=== PATIENT | male | born 1960 | race American Indian/Alaskan Native ===

== ENCOUNTER 2017-08-22 15:24 | Inpatient (IN) | payer MEDICARE ==
[2017-08-22 16:51] LABS: Basophils # (Auto) 0.1 K/mm3 (0.0-0.1); Eosinophils % (Auto) 14.2 % (0.0-4.3); Hematocrit 36.6 % (35.5-45.6); Hemoglobin 11.6 gm/dl (11.8-15.2); Lymphocytes # (Auto) 0.5 K/mm3 (1.2-5.4); Lymphocytes % (Auto) 7.1 % (13.4-35.0); Mean Corpuscular HGB Conc 32 % (32-34); Mean Corpuscular Hemoglobin 31 pg (28-32); Mean Corpuscular Volume 96 fl (84-94); Monocytes # (Auto) 0.2 K/mm3 (0.0-0.8); Monocytes % (Auto) 2.8 % (0.0-7.3); Red Cell Distribution Width 16.8 % (13.2-15.2)
[2017-08-22 16:54] LABS: Platelet Count 116 K/mm3 (140-440)
[2017-08-22 16:59] LABS: INR 1.7 (0.87-1.13)
[2017-08-22 17:08] LABS: Partial Thromboplastin Time 68.2 Sec. (24.2-36.6)
[2017-08-22 17:32] LABS: Albumin 4.2 g/dL (3.9-5); Calcium 9.3 mg/dL (8.4-10.2); Magnesium 2.3 mg/dL (1.7-2.3)
[2017-08-22] MEDS ORDERED: BENADRYL IV ONE (19:10)
[2017-08-22] MEDS ORDERED: APRESOLINE IV ONE (19:11)
--- NOTE | 2017-08-22 19:15 | Emergency Department Report ---
ED General Adult HPI - General Chief complaint: Medical Clearance Stated complaint: POSSIBLE SHINGLES, VOMMITTING Time Seen by Provider: 08/22/17 19:04 Source: patient, family Mode of arrival: Wheelchair Limitations: No Limitations - History of Present Illness Initial comments: Patient is 57 years old male history of end-stage renal disease on hemodialysis , hypertension and diabetes, legally blind. Patient presented today with generalized itching for more than a month. He stated that he missed his dialysis yesterday came was a blood pressure of 226/114. Patient denied any headache complain of mild shortness of breath. - Related Data Allergies Allergy/AdvReac Type Severity Reaction Status Date / Time latex Allergy Hives Verified 08/22/17 16:18 ED Review of Systems ROS: Stated complaint: POSSIBLE SHINGLES, VOMMITTING Other details as noted in HPI Comment: All other systems reviewed and negative Constitutional: denies: chills, fever Respiratory: shortness of breath. denies: cough Cardiovascular: orthopnea. denies: chest pain, palpitations, dyspnea on exertion Gastrointestinal: denies: abdominal pain, nausea, vomiting, diarrhea, constipation, hematemesis Neurological: denies: headache, numbness, paresthesias ED Past Medical Hx - Past Medical History Hx Hypertension: Yes Hx Diabetes: Yes Hx Renal Disease: Yes Additional medical history: BLIOND - Surgical History Additional Surgical History: SHUNT IN RIGHT ARM - Social History Smoking Status: Never Smoker Substance Use Type: Alcohol ED Physical Exam - General Limitations: No Limitations General appearance: alert, in no apparent distress - Head Head exam: Present: atraumatic, normocephalic, normal inspection - Eye Eye exam: Present: normal appearance - Neck Neck exam: Present: normal inspection, full ROM. Absent: tenderness - Respiratory Respiratory exam: Present: decreased breath sounds. Absent: normal lung sounds bilaterally, respiratory distress, wheezes, rales - Cardiovascular Cardiovascular Exam: Present: regular rate, normal rhythm, normal heart sounds - GI/Abdominal GI/Abdominal exam: Present: soft, normal bowel sounds. Absent: distended, tenderness, guarding, rebound, rigid, organomegaly, mass, bruit, pulsatile mass , hernia - Extremities Exam Extremities exam: Present: normal inspection, full ROM, normal capillary refill - Back Exam Back exam: Present: normal inspection, full ROM. Absent: tenderness, CVA tenderness (R), CVA tenderness (L) - Neurological Exam Neurological exam: Present: alert, oriented X3, CN II-XII intact, normal gait - Psychiatric Psychiatric exam: Present: normal affect - Skin Skin exam: Present: warm, intact, normal color. Absent: cyanosis, diaphoretic, erythema ED Course Vital Signs 08/22/17 08/22/17 08/22/17 16:18 20:20 20:30 Temperature 98.7 F Pulse Rate 85 89 83 Respiratory 24 19 Rate Blood Pressure 226/114 233/119 O2 Sat by Pulse 93 100 Oximetry 08/22/17 20:38 Temperature 98.3 F Pulse Rate Respiratory Rate Blood Pressure O2 Sat by Pulse Oximetry ED Medical Decision Making - Lab Data Result diagrams: 08/22/17 16:37 08/22/17 16:37 - Radiology Data Radiology results: report reviewed Referring Physician: ZEFERINO PADGETT Patient Name: MAURI MARROQUIN Date of : 1960 Sex: Male Report Date: 2017-08-22 Report Status: Finalized Findings [address] [address] XRay Report Signed Patient: MAURI MARROQUIN MR#: [id number] : 1960 Acct:[id number] Age/Sex: 57 / M ADM Date: 08/22/17 Loc: ED Attending Dr: Ordering Physician: ZEFERINO PADGETT Date of Service: 08/22/17 Procedure(s): XR chest 1V ap Accession Number(s): [id number] cc: ZEFERINO PADGETT Fluoro Time In Minutes: FINAL REPORT EXAM: XR CHEST 1V AP HISTORY: volume overload TECHNIQUE: AP portable view of the chest. PRIORS: None. FINDINGS: The cardiac silhouette is moderately enlarged. The lungs are clear. The bones and soft tissues are unremarkable. IMPRESSION: Moderate cardiomegaly. Otherwise, no acute findings. Transcribed By: CAROLYN Dictated By: IRIS PRIETO MD Electronically Authenticated By: IRIS PRIETO MD Signed Date/Time: 08/22/171529 DD/ 29 TD/TT: 08/22/171529 - Medical Decision Making Discussed with Dr. Lydia, I presented the patient to him, he is at bedside admitting the patient.Dr Freeman stated that he will talk to Dr Palencia. Critical care attestation.: If time is entered above; I have spent that time in minutes in the direct care of this critically ill patient, excluding procedure time. ED Disposition Clinical Impression: Volume overload, Itching, End stage renal disease on dialysis Disposition: OP ADMIT IP TO THIS HOSP Is pt being admited?: Yes Condition: Stable
--- NOTE | 2017-08-22 19:34 | XRay Report ---
FINAL REPORT EXAM: XR CHEST 1V AP HISTORY: volume overload TECHNIQUE: AP portable view of the chest. PRIORS: None. FINDINGS: The cardiac silhouette is moderately enlarged. The lungs are clear. The bones and soft tissues are unremarkable. IMPRESSION: Moderate cardiomegaly. Otherwise, no acute findings.
[2017-08-22] MEDS ORDERED: AMBIEN PO PRN (21:14)
[2017-08-22] MEDS ORDERED: MILK OF MAGNESIA PO PRN (21:14)
[2017-08-22] MEDS ORDERED: DULCOLAX PR PRN (21:14)
[2017-08-22] MEDS ORDERED: TYLENOL PO PRN (21:14)
[2017-08-22] MEDS ORDERED: ZOFRAN IV PRN (21:14)
--- NOTE | 2017-08-22 21:14 | History and Physical Report ---
History of Present Illness Date of examination: 08/22/17 Date of admission: 08/22/17 19:50 Chief complaint: Cc Sob sec to missed HD History of present illness: History of Present Illness Patient is 57 years old male history of end-stage renal disease on hemodialysis , hypertension and diabetes, legally blind. Patient presented today with generalized itching for more than a month. He stated that he missed his dialysis yesterday Patient denied any headache. Complaints of mild shortness of breath.Also High BP.Orthopnea present. Goes to [facility] Past Medical History Hx Hypertension: Yes Hx Diabetes: Yes Hx Renal Disease: Yes Additional medical history: BLIND Surgical History Additional Surgical History: SHUNT IN RIGHT ARM Social History Smoking Status: Never Smoker Substance Use Type: Alcohol Fam Hx htn l Medications and Allergies Allergies Allergy/AdvReac Type Severity Reaction Status Date / Time latex Allergy Hives Verified 08/22/17 16:18 Home Medications Medication Instructions Recorded Confirmed Last Taken Type B,C/Ferrous Fum/FA/D3/Zinc Ox 1 each PO DAILY 08/22/17 08/22/17 Unknown History [Prorenal Multivitamin Tablet] Calcium Acetate 667 mg PO TID 08/22/17 08/22/17 Unknown History Calcium Carbonate [Antacid Extra 300 mg PO DAILY 08/22/17 08/22/17 Unknown History Strength] Cholecalciferol (Vitamin D3) 50,000 unit PO QWEEK 08/22/17 08/22/17 Unknown History [Vitamin D3] Ciprofloxacin HCl [Ciprofloxacin 500 mg PO BID 08/22/17 08/22/17 Unknown History TAB] NIFEdipine [Nifedipine ER] 60 mg PO DAILY 08/22/17 08/22/17 Unknown History Review of Systems All systems: negative Constitutional: no weight loss, no weight gain, no fever, no chills Ears, nose, mouth and throat: no hoarseness, no sore throat, no swelling in mouth, no swelling in throat Cardiovascular: orthopnea, shortness of breath, dyspnea on exertion, no chest pain, no palpitations, no rapid/irregular heart beat, no edema, no syncope, no lightheadedness Respiratory: no cough, no cough with sputum, no excessive sputum, no hemoptysis , no shortness of breath, no dyspnea on exertion Gastrointestinal: no abdominal pain, no nausea, no vomiting, no diarrhea, no constipation, no change in bowel habits, no hematemesis Genitourinary Male: no hematuria, no flank pain, no discharge, no urinary frequency, no urinary hesitancy, no nocturia Rectal: no pain Musculoskeletal: no neck stiffness, no neck pain, no shooting arm pain, no arm numbness/tingling, no low back pain, no shooting leg pain, no leg numbness/ tingling, no redness of joints Integumentary: no rash, no pruritis, no redness, no sores Neurological: no head injury, no transient paralysis, no paralysis, no weakness Psychiatric: no anxiety, no change in sleep habits, no sleep disturbances Endocrine: no cold intolerance, no heat intolerance Hematologic/Lymphatic: no easy bruising, no easy bleeding Allergic/Immunologic: no urticaria, no allergic rhinitis, no wheezing Exam - Constitutional Vitals: Temp Pulse Resp BP Pulse Ox 98.3 F 83 19 233/119 100 08/22/17 20:38 08/22/17 20:30 08/22/17 20:30 08/22/17 20:30 08/22/17 20:30 General appearance: Present: no acute distress, well-nourished - EENT Eyes: Present: PERRL ENT: hearing intact, clear oral mucosa - Neck Neck: Present: supple, normal ROM - Respiratory Respiratory effort: normal Respiratory: bilateral: CTA - Cardiovascular Heart rate: 80 Rhythm: regular Heart Sounds: Present: S1 & S2. Absent: rub, click - Extremities Extremities: no ischemia, pulses intact, pulses symmetrical, No edema Peripheral Pulses: within normal limits - Abdominal General gastrointestinal: Present: soft, non-tender, non-distended, normal bowel sounds Male genitourinary: Present: normal - Integumentary Integumentary: Present: clear, warm, dry - Musculoskeletal Musculoskeletal: gait normal, strength equal bilaterally - Psychiatric Psychiatric: appropriate mood/affect, intact judgment & insight - Neurologic Neurologic: CNII-XII intact, moves all extremities - Allied Health Allied health notes reviewed: nursing, case management Results - Labs CBC & Chem 7: 08/22/17 16:37 08/22/17 16:37 Labs: Laboratory Last Values WBC 6.9 K/mm3 (4.5-11.0) 08/22/17 16:37 RBC 3.80 M/mm3 (3.65-5.03) 08/22/17 16:37 Hgb 11.6 gm/dl (11.8-15.2) L 08/22/17 16:37 Hct 36.6 % (35.5-45.6) 08/22/17 16:37 MCV 96 fl (84-94) H 08/22/17 16:37 MCH 31 pg (28-32) 08/22/17 16:37 MCHC 32 % (32-34) 08/22/17 16:37 RDW 16.8 % (13.2-15.2) H 08/22/17 16:37 Plt Count 116 K/mm3 (140-440) L 08/22/17 16:37 Lymph % (Auto) 7.1 % (13.4-35.0) L 08/22/17 16:37 [place] % (Auto) 2.8 % (0.0-7.3) 08/22/17 16:37 Eos % (Auto) 14.2 % (0.0-4.3) H 08/22/17 16:37 Baso % (Auto) 1.0 % (0.0-1.8) 08/22/17 16:37 Lymph # 0.5 K/mm3 (1.2-5.4) L 08/22/17 16:37 [place] # 0.2 K/mm3 (0.0-0.8) 08/22/17 16:37 Eos # 1.0 K/mm3 (0.0-0.4) H 08/22/17 16:37 Baso # 0.1 K/mm3 (0.0-0.1) 08/22/17 16:37 Seg Neutrophils % 74.9 % (40.0-70.0) H 08/22/17 16:37 Seg Neutrophils # 5.1 K/mm3 (1.8-7.7) 08/22/17 16:37 PT 20.9 Sec. (12.2-14.9) H 08/22/17 16:37 INR 1.70 (0.87-1.13) H 08/22/17 16:37 APTT 68.2 Sec. (24.2-36.6) H* 08/22/17 16:37 Sodium 138 mmol/L (137-145) 08/22/17 16:37 Potassium 4.6 mmol/L (3.6-5.0) 08/22/17 16:37 Chloride 89.4 mmol/L (98-107) L 08/22/17 16:37 Carbon Dioxide 24 mmol/L (22-30) 08/22/17 16:37 Anion Gap 29 mmol/L 08/22/17 16:37 BUN 66 mg/dL (9-20) H 08/22/17 16:37 Creatinine 10.8 mg/dL (0.8-1.5) H 08/22/17 16:37 Estimated GFR 6 ml/min 08/22/17 16:37 BUN/Creatinine Ratio 6 % 08/22/17 16:37 Glucose 147 mg/dL (75-100) H 08/22/17 16:37 Calcium 9.3 mg/dL (8.4-10.2) 08/22/17 16:37 Magnesium 2.30 mg/dL (1.7-2.3) 08/22/17 16:37 Total Bilirubin 0.80 mg/dL (0.1-1.2) 08/22/17 16:37 AST 18 units/L (5-40) 08/22/17 16:37 ALT 21 units/L (7-56) 08/22/17 16:37 Alkaline Phosphatase 119 units/L (35-129) 08/22/17 16:37 Total Protein 7.2 g/dL (6.3-8.2) 08/22/17 16:37 Albumin 4.2 g/dL (3.9-5) 08/22/17 16:37 Albumin/Globulin Ratio 1.4 % 08/22/17 16:37 - Imaging and Cardiology EKG: report reviewed Chest x-ray: report reviewed (Cardiomegaly,NAF) Assessment and Plan Advance Directives: Yes (Full code) VTE prophylaxis?: Chemical Plan of care discussed with patient/family: Yes - Patient Problems (1) Hypertensive emergency Current Visit: Yes Status: Acute Plan to address problem: Patient initiated on Losartan and Coreg Cont Nifedipine (2) Volume overload Current Visit: Yes Status: Acute Qualifiers: Hypervolemia type: unspecified Qualified Code(s): E87.70 - Fluid overload, unspecified Plan to address problem: Needs HD Nephrology consulted (3) End stage renal disease on dialysis Current Visit: Yes Status: Chronic Plan to address problem: cont HD (4) Pruritus Current Visit: Yes Status: Chronic Plan to address problem: Sec to uremia Hydroxyzine (5) DVT prophylaxis Current Visit: Yes Status: Acute Plan to address problem: On Heparin
[2017-08-22] MEDS ORDERED: ATARAX PO PRN (23:50)
[2017-08-22] MEDS: HEPARIN SUB-Q SCH (23:55)
[2017-08-23] MEDS: APRESOLINE IV PRN ×2 (02:59→13:22)
[2017-08-23] MEDS ORDERED: APRESOLINE ONE (03:02)
[2017-08-23] MEDS ORDERED: BENADRYL ONE (04:01)
[2017-08-23] MEDS ORDERED: BENADRYL IV ONE (04:04)
[2017-08-23 08:40] LABS: Hematocrit 33.8 % (35.5-45.6); Hemoglobin 10.6 gm/dl (11.8-15.2); Mean Corpuscular HGB Conc 31 % (32-34); Mean Corpuscular Hemoglobin 29 pg (28-32); Mean Corpuscular Volume 93 fl (84-94); Platelet Count 119 K/mm3 (140-440); Red Blood Count 3.62 M/mm3 (3.65-5.03); Red Cell Distribution Width 16.9 % (13.2-15.2)
--- NOTE | 2017-08-23 09:18 | Progress Note ---
Assessment and Plan Assessment and plan: Accelerated hypertension. Continue losartan, Procardia and Coreg. Increase Procardia. Volume overload. Patient with missed hemodialysis. Nephrology consultation pending. Continue scheduled hemodialysis. ESRD. Hemodialysis per nephrology. Pruritis. Etiology secondary to uremia. DVT prophylaxis. Continue heparin. History Interval history: No new issues overnight. Hospitalist Physical - Constitutional Vitals: Temp Pulse Resp BP Pulse Ox 98.5 F 85 20 155/105 95 08/23/17 05:37 08/23/17 05:37 08/23/17 06:03 08/23/17 05:37 08/23/17 06:03 General appearance: Present: no acute distress, well-nourished - EENT Eyes: Present: PERRL, EOM intact ENT: hearing intact, clear oral mucosa, dentition normal - Neck Neck: Present: supple, normal ROM - Respiratory Respiratory effort: normal Respiratory: bilateral: CTA - Cardiovascular Rhythm: regular Heart Sounds: Present: S1 & S2. Absent: gallop, rub - Extremities Extremities: no ischemia, No edema, Full ROM - Abdominal General gastrointestinal: soft, non-tender, non-distended, normal bowel sounds - Integumentary Integumentary: Present: clear, warm, dry - Neurologic Neurologic: CNII-XII intact, moves all extremities Results - Labs CBC & Chem 7: 08/23/17 08:14 08/22/17 16:37 Labs: Laboratory Last Values WBC 6.4 K/mm3 (4.5-11.0) 08/23/17 08:14 RBC 3.62 M/mm3 (3.65-5.03) L 08/23/17 08:14 Hgb 10.6 gm/dl (11.8-15.2) L 08/23/17 08:14 Hct 33.8 % (35.5-45.6) L 08/23/17 08:14 MCV 93 fl (84-94) 08/23/17 08:14 MCH 29 pg (28-32) 08/23/17 08:14 MCHC 31 % (32-34) L 08/23/17 08:14 RDW 16.9 % (13.2-15.2) H 08/23/17 08:14 Plt Count 119 K/mm3 (140-440) L 08/23/17 08:14 Lymph % (Auto) 7.1 % (13.4-35.0) L 08/22/17 16:37 [place] % (Auto) 2.8 % (0.0-7.3) 08/22/17 16:37 Eos % (Auto) [employer] 08/23/17 08:14 Baso % (Auto) 1.0 % (0.0-1.8) 08/22/17 16:37 Lymph # 0.5 K/mm3 (1.2-5.4) L 08/22/17 16:37 [place] # 0.2 K/mm3 (0.0-0.8) 08/22/17 16:37 Eos # 1.0 K/mm3 (0.0-0.4) H 08/22/17 16:37 Baso # 0.1 K/mm3 (0.0-0.1) 08/22/17 16:37 Seg Neutrophils % 74.9 % (40.0-70.0) H 08/22/17 16:37 Seg Neutrophils # 5.1 K/mm3 (1.8-7.7) 08/22/17 16:37 PT 20.9 Sec. (12.2-14.9) H 08/22/17 16:37 INR 1.70 (0.87-1.13) H 08/22/17 16:37 APTT 68.2 Sec. (24.2-36.6) H* 08/22/17 16:37 Sodium 138 mmol/L (137-145) 08/22/17 16:37 Potassium 4.6 mmol/L (3.6-5.0) 08/22/17 16:37 Chloride 89.4 mmol/L (98-107) L 08/22/17 16:37 Carbon Dioxide 24 mmol/L (22-30) 08/22/17 16:37 Anion Gap 29 mmol/L 08/22/17 16:37 BUN 66 mg/dL (9-20) H 08/22/17 16:37 Creatinine 10.8 mg/dL (0.8-1.5) H 08/22/17 16:37 Estimated GFR 6 ml/min 08/22/17 16:37 BUN/Creatinine Ratio 6 % 08/22/17 16:37 Glucose 147 mg/dL (75-100) H 08/22/17 16:37 Calcium 9.3 mg/dL (8.4-10.2) 08/22/17 16:37 Magnesium 2.30 mg/dL (1.7-2.3) 08/22/17 16:37 Total Bilirubin 0.80 mg/dL (0.1-1.2) 08/22/17 16:37 AST 18 units/L (5-40) 08/22/17 16:37 ALT 21 units/L (7-56) 08/22/17 16:37 Alkaline Phosphatase 119 units/L (35-129) 08/22/17 16:37 Total Protein 7.2 g/dL (6.3-8.2) 08/22/17 16:37 Albumin 4.2 g/dL (3.9-5) 08/22/17 16:37 Albumin/Globulin Ratio 1.4 % 08/22/17 16:37
[2017-08-23 09:47] LABS: Calcium 9.5 mg/dL (8.4-10.2)
[2017-08-23] MEDS ORDERED: CALCIUM CARBONATE 300 MG PO SCH (10:00)
[2017-08-23] MEDS ORDERED: PROCARDIA XL PO SCH (10:00)
[2017-08-23] MEDS ORDERED: TUMS PO SCH (10:00)
[2017-08-23] MEDS: HEPARIN SUB-Q SCH ×2 (10:06→22:33)
[2017-08-23] MEDS: PHOSLO PO SCH ×3 (10:10→22:27)
[2017-08-23 10:12] LABS: Total Cells Counted 100
--- NOTE | 2017-08-23 10:12 | Consultation ---
History of Present Illness - Reason for Consult Consult date: 08/23/17 end stage renal disease - History of Present Illness 57yr M c/o SOB & Itching. Says he missed his regular dialysis on thursday. Denies CP/N/V/Fever Past History Past Medical History: diabetes, ESRD, hypertension Social history: single. denies: smoking, alcohol abuse, IV drug use Family history: other (No other known h/o renal dz in family) Medications and Allergies Allergies Allergy/AdvReac Type Severity Reaction Status Date / Time latex Allergy Hives Verified 08/22/17 16:18 Home Medications Medication Instructions Recorded Confirmed Last Taken Type B,C/Ferrous Fum/FA/D3/Zinc Ox 1 each PO DAILY 08/22/17 08/22/17 Unknown History [Prorenal Multivitamin Tablet] Calcium Acetate 667 mg PO TID 08/22/17 08/22/17 Unknown History Calcium Carbonate [Antacid Extra 300 mg PO DAILY 08/22/17 08/22/17 Unknown History Strength] Cholecalciferol (Vitamin D3) 50,000 unit PO QWEEK 08/22/17 08/22/17 Unknown History [Vitamin D3] Ciprofloxacin HCl [Ciprofloxacin 500 mg PO BID 08/22/17 08/22/17 Unknown History TAB] NIFEdipine [Nifedipine ER] 60 mg PO DAILY 08/22/17 08/22/17 Unknown History Active Meds: Active Medications Acetaminophen (Tylenol) 650 mg PO Q4H PRN PRN Reason: Pain MILD(1-3)/Fever >100.5/OCASIO Bisacodyl (Dulcolax) 10 mg [place] QDAY PRN PRN Reason: Constipation unrelieved by MOM Calcium Acetate (Phoslo) 667 mg PO TID [facility] Calcium Carbonate/Glycine (Tums) 750 mg PO DAILY [facility] Carvedilol (Coreg) 12.5 mg PO BID [facility] Heparin Sodium (Porcine) (Heparin) 5,000 unit SUB-Q Q12HR CASA Last Admin: 08/22/17 23:55 Dose: 5,000 unit Hydralazine HCl (Apresoline) 20 mg IV Q4HR PRN PRN Reason: Hypertension Last Admin: 08/23/17 02:59 Dose: 20 mg Hydroxyzine HCl (Atarax) 25 mg PO Q6H PRN PRN Reason: Itching Last Admin: 08/23/17 00:56 Dose: 25 mg Losartan Potassium (Cozaar) 100 mg PO QDAY [facility] Magnesium Hydroxide (Milk Of Magnesia) 30 ml PO Q4H PRN PRN Reason: Constipation Nifedipine (Procardia Xl) 60 mg PO Q12HR [facility] Ondansetron HCl (Zofran) 4 mg IV Q8H PRN PRN Reason: N/V unrelieved by Reglan Zolpidem Tartrate (Ambien) 5 mg PO QHS PRN PRN Reason: Insomnia Last Admin: 08/22/17 21:47 Dose: 5 mg Review of Systems Constitutional: no fever, no fatigue, no chronic pain Cardiovascular: shortness of breath, no chest pain, no orthopnea, no leg edema Respiratory: shortness of breath (Mild), no cough Exam - Vital Signs Vital signs: Vital Signs Temp Pulse Resp BP Pulse Ox 98.7 F 85 24 226/114 93 08/22/17 16:18 08/22/17 16:18 08/22/17 16:18 08/22/17 16:18 08/22/17 16:18 - General Appearance General appearance: other (Awake & alert, Not in distress) EENT: other (Legally blind) Neck: Present: neck supple. Absent: JVD/HJR Respiratory: Other (Few diffuse rales) Heart: regular, S1S2 Gastrointestinal: Present: normal Integumentary: no rash Additional exam: Positve Bruit Lt forearm AVF Results - Lab Results 08/23/17 08:14 08/23/17 08:14 Most recent lab results Calcium 9.5 mg/dL (8.4-10.2) 08/23/17 08:14 Magnesium 2.30 mg/dL (1.7-2.3) 08/22/17 16:37 Assessment and Plan Uncontrolled HTN - Resume usual meds & adjust as necessary ESRD - HD in am
[2017-08-23 10:13] LABS: Ovalocytes Few; Schistocytes Few; Tear Drop Cells Rare
[2017-08-23 10:14] LABS: Acanthocytes Few; Burr Cells Few; Platelet Estimate Consistent w Auto
[2017-08-23] MEDS: COZAAR PO SCH (10:14)
[2017-08-23] MEDS ORDERED: NACL 0.9% 100 ML IV PRN (10:23)
[2017-08-23] MEDS ORDERED: HEPARIN IV PRN (10:25)
[2017-08-23] MEDS ORDERED: HEPARIN 10,000 UNITS/10 ML IV PRN (10:25)
[2017-08-23] MEDS ORDERED: PROCRIT IV PRN (10:25)
[2017-08-23] MEDS: COREG PO SCH ×2 (10:57→22:27)
[2017-08-23] MEDS: PROCARDIA XL PO SCH ×2 (11:58→22:27)
[2017-08-24 06:17] LABS: Albumin 3.5 g/dL (3.9-5); Calcium 9.5 mg/dL (8.4-10.2)
[2017-08-24 06:29] LABS: Hepatitis A Antibody IgM Non-Reactive (NonReactive); Hepatitis B Core IgM Non-Reactive (NonReactive); Hepatitis B Surface Antigen Non-Reactive (Negative); Hepatitis C Virus Antibody Non-Reactive (NonReactive)
[2017-08-24] MEDS: PHOSLO PO SCH (09:09)
--- NOTE | 2017-08-24 10:20 | Progress Note ---
Assessment and Plan 1. ESRD: Continue hemodialysis three times a week, MWF schedule. HD today. 2. Hypertension: BP is better. 3. Anemia: Monitor. Subjective Date of service: 08/24/17 Interval history: Patient was seen and examined while on hemodialysis. Objective - Vital Signs Vital signs: Vital Signs - 12hr 08/23/17 08/24/17 08/24/17 22:27 04:00 08:24 Temperature 98.1 F 98.0 F Pulse Rate 75 77 78 Respiratory 20 18 Rate Blood Pressure 165/89 Blood Pressure 151/78 170/89 [Right] O2 Sat by Pulse 98 Oximetry - General Appearance General appearance: well-developed, well-nourished, appears stated age, other ( no distress) EENT: ATNC, sclerotic cornea Neck: supple Respiratory: Present: Clear to Ascultation Cardiology: regular, S1S2, no murmurs Gastrointestinal: normoactive bowel sounds, no tenderness, no distended, obese Integumentary: no rash, warm and dry Neurologic: no asterixis, alert and oriented x3, other (bilateral binldness) Musculoskeletal: other (left FA AVF) Psychiatric: mood/affect appropriate, cooperative - Lab 08/23/17 08:14 08/24/17 05:48 Most recent lab results Calcium 9.5 mg/dL (8.4-10.2) 08/24/17 05:48 Phosphorus 7.50 mg/dL (2.5-4.5) H 08/24/17 05:48 Magnesium 2.30 mg/dL (1.7-2.3) 08/22/17 16:37
--- NOTE | 2017-08-24 10:59 | Discharge Summary ---
<JESSE DE LA CRUZ - Last Filed: 08/24/17 11:10> Providers - Providers Date of Admission: 08/22/17 19:50 Date of discharge: 08/24/17 Attending physician: DAVID LOWE 08/22/17 21:14 Consult to Physician [CONS] Routine Consulting Provider: ZEN HENRIQUEZ Reason For Exam: ESRD Place consult to:: NEPHROLOGY Notified:: Y If yes, spoke with:: DR HENRIQUEZ Comment:: DR FLORENCE ROONEY OF PT Primary care physician: KAITY LEBLANC Hospitalization Reason for admission: hyperkalemia. Condition: Good Hospital course: Patient is 57 years old male history of end-stage renal disease on hemodialysis , hypertension and diabetes, legally blind. Patient presented today with generalized itching for more than a month and missed his dialysis yesterday. Patient was diagnosed with hypertensive emergency,Hyperlipidemia,Volume overload ,End stage renal disease on dialysis, Pruritus and noncompliance. Patient is noncompliance with renal dialysis. He received emergent dialysis, during which excess fluid was removed, and his hyperkalemia corrected with HD, he was restarted on the rest of his meds, which she had been poorly compliant with which included BP meds. He was counseled about non compliance and he agreed that he has to make better arrangements in his personal life so that he can continue his HD and that he would start taking his meds faithfully. Discharge Diagnosed Hypertensive emergency. Hyperlipidemia Volume overload End stage renal disease on dialysis Pruritus noncompliance Disposition: DC-01 TO HOME OR SELFCARE Time spent for discharge: 33 minutes Core Measure Documentation - Palliative Care Palliative Care/ Comfort Measures: Not Applicable - Core Measures Any of the following diagnoses?: none Exam - Physical Exam Narrative exam: He is legally blind - Constitutional Vitals: Temp Pulse Resp BP Pulse Ox 98.0 F 78 18 170/89 98 08/24/17 08:24 08/24/17 08:24 08/24/17 08:24 08/24/17 08:24 08/24/17 04:00 General appearance: Present: no acute distress - EENT Eyes: Present: PERRL ENT: hearing intact - Neck Neck: Present: supple, normal ROM - Respiratory Respiratory: bilateral: CTA - Cardiovascular Rhythm: regular Heart Sounds: Present: S1 & S2 - Abdominal General gastrointestinal: Present: soft, non-tender Male genitourinary: Present: deferred - Rectal Rectal Exam: deferred - Integumentary Integumentary: Present: clear, warm, dry - Musculoskeletal Musculoskeletal: strength equal bilaterally - Psychiatric Psychiatric: appropriate mood/affect - Neurologic Neurologic: moves all extremities - Allied Health Allied health notes reviewed: nursing Plan Diet: low fat, low cholesterol, low salt, renal Follow up with: KAITY LEBLANC MD [Primary Care Provider] - 7 Days <DAVID LOWE - Last Filed: 08/25/17 08:28> Providers - Providers Date of Admission: 08/22/17 19:50 Date of discharge: 08/25/17 Attending physician: DAVID LOWE 08/22/17 21:14 Consult to Physician [CONS] Routine Consulting Provider: ZEN HENRIQUEZ Reason For Exam: ESRD Place consult to:: NEPHROLOGY Notified:: Y If yes, spoke with:: DR HENRIQUEZ Comment:: DR FLORENCE ROONEY OF PT Primary care physician: KAITY LEBLANC Hospitalization Hospital course: I saw and evaluated the patient. I agree with the findings and the plan of care as documented in the Nurse Practitioner's~note, with the following corrections and additions. Exam - Constitutional Vitals: Temp Pulse Resp BP Pulse Ox 97.6 F 86 18 176/86 93 08/25/17 04:39 08/24/17 22:30 08/25/17 04:39 08/25/17 04:39 08/24/17 20:46
[2017-08-24] MEDS ORDERED: NACL 0.9 (PRIMING MACHINE ONLY DIALYSIS) MC ONE (15:54)
[2017-08-24] MEDS: COREG PO SCH (22:30)
[2017-08-24] MEDS: HEPARIN SUB-Q SCH (22:30)
[2017-08-24] MEDS: PROCARDIA XL PO SCH (23:05)
[2017-08-25] MEDS: PHOSLO PO SCH (05:04)
--- NOTE | 2017-08-25 08:21 | Progress Note ---
Assessment and Plan 1. ESRD: Continue hemodialysis three times a week, MWF schedule. 2. Hypertension: Increase Coreg. 3. Anemia: Monitor. Subjective Date of service: 08/25/17 Interval history: Patient was seen and examined at the bedside. Doing ok. Objective - Vital Signs Vital signs: Vital Signs - 12hr 08/24/17 08/24/17 08/24/17 20:46 22:00 22:30 Temperature 98.6 F Pulse Rate 80 86 Respiratory 20 18 Rate Blood Pressure 229/113 209/98 O2 Sat by Pulse 93 Oximetry 08/25/17 04:39 Temperature 97.6 F Pulse Rate Respiratory 18 Rate Blood Pressure 176/86 O2 Sat by Pulse Oximetry - General Appearance General appearance: well-developed, well-nourished, appears stated age, other ( no distress) EENT: ATNC, hearing intact Neck: supple Respiratory: Present: Clear to Ascultation Cardiology: regular, S1S2, no murmurs Gastrointestinal: normoactive bowel sounds, no tenderness, no distended, obese Integumentary: no rash, warm and dry Neurologic: no asterixis, alert and oriented x3, other (bilateral blindness) Musculoskeletal: other (no edema, left FA AVF) Psychiatric: mood/affect appropriate, cooperative - Lab 08/23/17 08:14 08/24/17 05:48 Most recent lab results Calcium 9.5 mg/dL (8.4-10.2) 08/24/17 05:48 Phosphorus 7.50 mg/dL (2.5-4.5) H 08/24/17 05:48 Magnesium 2.30 mg/dL (1.7-2.3) 08/22/17 16:37
--- NOTE | 2017-08-25 08:27 | Progress Note ---
Assessment and Plan Assessment and plan: Accelerated hypertension. Continue losartan, Procardia and Coreg. Increased Procardia. Volume overload. Patient with missed hemodialysis. Nephrology consultation pending. Continue scheduled hemodialysis. ESRD. Hemodialysis per nephrology. Pruritis. Etiology secondary to uremia. DVT prophylaxis. Continue heparin. History Interval history: No new issues overnight. Hospitalist Physical - Constitutional Vitals: Temp Pulse Resp BP Pulse Ox 97.6 F 86 18 176/86 93 08/25/17 04:39 08/24/17 22:30 08/25/17 04:39 08/25/17 04:39 08/24/17 20:46 General appearance: Present: no acute distress - EENT Eyes: Present: PERRL, EOM intact ENT: hearing intact, clear oral mucosa, dentition normal - Neck Neck: Present: supple, normal ROM - Respiratory Respiratory effort: normal Respiratory: bilateral: CTA - Cardiovascular Rhythm: regular Heart Sounds: Present: S1 & S2. Absent: gallop, rub - Extremities Extremities: no ischemia, No edema, Full ROM - Abdominal General gastrointestinal: soft, non-tender, non-distended, normal bowel sounds - Integumentary Integumentary: Present: clear, warm, dry - Neurologic Neurologic: CNII-XII intact, moves all extremities Results - Labs CBC & Chem 7: 08/23/17 08:14 08/24/17 05:48 Labs: Laboratory Last Values WBC 6.4 K/mm3 (4.5-11.0) 08/23/17 08:14 RBC 3.62 M/mm3 (3.65-5.03) L 08/23/17 08:14 Hgb 10.6 gm/dl (11.8-15.2) L 08/23/17 08:14 Hct 33.8 % (35.5-45.6) L 08/23/17 08:14 MCV 93 fl (84-94) 08/23/17 08:14 MCH 29 pg (28-32) 08/23/17 08:14 MCHC 31 % (32-34) L 08/23/17 08:14 RDW 16.9 % (13.2-15.2) H 08/23/17 08:14 Plt Count 119 K/mm3 (140-440) L 08/23/17 08:14 Lymph % (Auto) 7.1 % (13.4-35.0) L 08/22/17 16:37 [place] % (Auto) 2.8 % (0.0-7.3) 08/22/17 16:37 Eos % (Auto) Blanket Binder 08/23/17 08:14 Baso % (Auto) 1.0 % (0.0-1.8) 08/22/17 16:37 Lymph # 0.5 K/mm3 (1.2-5.4) L 08/22/17 16:37 [place] # 0.2 K/mm3 (0.0-0.8) 08/22/17 16:37 Eos # 1.0 K/mm3 (0.0-0.4) H 08/22/17 16:37 Baso # 0.1 K/mm3 (0.0-0.1) 08/22/17 16:37 Add Manual Diff Complete 08/23/17 08:14 Total Counted 100 08/23/17 08:14 Seg Neutrophils % 74.9 % (40.0-70.0) H 08/22/17 16:37 Seg Neuts % (Manual) 77.0 % (40.0-70.0) H 08/23/17 08:14 Band Neutrophils % 0 % 08/23/17 08:14 Lymphocytes % (Manual) 4.0 % (13.4-35.0) L 08/23/17 08:14 Reactive Lymphs % (Man) 0 % 08/23/17 08:14 Monocytes % (Manual) 1.0 % (0.0-7.3) 08/23/17 08:14 Eosinophils % (Manual) 17.0 % (0.0-4.3) H 08/23/17 08:14 Basophils % (Manual) 1.0 % (0.0-1.8) 08/23/17 08:14 Metamyelocytes % 0 % 08/23/17 08:14 Myelocytes % 0 % 08/23/17 08:14 Promyelocytes % 0 % 08/23/17 08:14 Blast Cells % 0 % 08/23/17 08:14 Nucleated RBC % Not Reportable 08/23/17 08:14 Seg Neutrophils # 5.1 K/mm3 (1.8-7.7) 08/22/17 16:37 Seg Neutrophils # Man 4.9 K/mm3 (1.8-7.7) 08/23/17 08:14 Band Neutrophils # 0.0 K/mm3 08/23/17 08:14 Lymphocytes # (Manual) 0.3 K/mm3 (1.2-5.4) L 08/23/17 08:14 Abs React Lymphs (Man) 0.0 K/mm3 08/23/17 08:14 Monocytes # (Manual) 0.1 K/mm3 (0.0-0.8) 08/23/17 08:14 Eosinophils # (Manual) 1.1 K/mm3 (0.0-0.4) H 08/23/17 08:14 Basophils # (Manual) 0.1 K/mm3 (0.0-0.1) 08/23/17 08:14 Metamyelocytes # 0.0 K/mm3 08/23/17 08:14 Myelocytes # 0.0 K/mm3 08/23/17 08:14 Promyelocytes # 0.0 K/mm3 08/23/17 08:14 Blast Cells # 0.0 K/mm3 08/23/17 08:14 WBC Morphology Not Reportable 08/23/17 08:14 Hypersegmented Neuts Not Reportable 08/23/17 08:14 Hyposegmented Neuts Not Reportable 08/23/17 08:14 Hypogranular Neuts Not Reportable 08/23/17 08:14 Smudge Cells Not Reportable 08/23/17 08:14 Toxic Granulation Not Reportable 08/23/17 08:14 Toxic Vacuolation Not Reportable 08/23/17 08:14 Dohle Bodies Not Reportable 08/23/17 08:14 Pelger-Huet Anomaly Not Reportable 08/23/17 08:14 Destin Rods Not Reportable 08/23/17 08:14 Platelet Estimate Consistent w auto 08/23/17 08:14 Clumped Platelets Not Reportable 08/23/17 08:14 Plt Clumps, EDTA Not Reportable 08/23/17 08:14 Large Platelets Not Reportable 08/23/17 08:14 Giant Platelets Not Reportable 08/23/17 08:14 Platelet Satelliting Not Reportable 08/23/17 08:14 Plt Morphology Comment Not Reportable 08/23/17 08:14 RBC Morphology Not Reportable 08/23/17 08:14 Dimorphic RBCs Not Reportable 08/23/17 08:14 Polychromasia Not Reportable 08/23/17 08:14 Hypochromasia Not Reportable 08/23/17 08:14 Poikilocytosis Not Reportable 08/23/17 08:14 Anisocytosis Not Reportable 08/23/17 08:14 Microcytosis Not Reportable 08/23/17 08:14 Macrocytosis Not Reportable 08/23/17 08:14 Spherocytes Not Reportable 08/23/17 08:14 Pappenheimer Bodies Not Reportable 08/23/17 08:14 Sickle Cells Not Reportable 08/23/17 08:14 Target Cells Not Reportable 08/23/17 08:14 Tear Drop Cells Rare 08/23/17 08:14 Ovalocytes Few 08/23/17 08:14 Helmet Cells Not Reportable 08/23/17 08:[address] [place] Bodies Not Reportable 08/23/17 08:14 [place] Rings Not Reportable 08/23/17 08:14 Adrian Cells Few 08/23/17 08:14 Bite Cells Not Reportable 08/23/17 08:14 Crenated Cell Not Reportable 08/23/17 08:14 Elliptocytes Few 08/23/17 08:14 Acanthocytes (Spur) Few 08/23/17 08:14 Rouleaux Not Reportable 08/23/17 08:14 Hemoglobin C Crystals Not Reportable 08/23/17 08:14 Schistocytes Few 08/23/17 08:14 Malaria parasites Not Reportable 08/23/17 08:14 Kam Bodies Not Reportable 08/23/17 08:14 Hem Pathologist Commnt No 08/23/17 08:14 PT 20.9 Sec. (12.2-14.9) H 08/22/17 16:37 INR 1.70 (0.87-1.13) H 08/22/17 16:37 APTT 68.2 Sec. (24.2-36.6) H* 08/22/17 16:37 Sodium 137 mmol/L (137-145) 08/24/17 05:48 Potassium 5.3 mmol/L (3.6-5.0) H 08/24/17 05:48 Chloride 91.3 mmol/L (98-107) L 08/24/17 05:48 Carbon Dioxide 24 mmol/L (22-30) 08/24/17 05:48 Anion Gap 27 mmol/L 08/24/17 05:48 BUN 81 mg/dL (9-20) H 08/24/17 05:48 Creatinine 13.1 mg/dL (0.8-1.5) H 08/24/17 05:48 Estimated GFR 5 ml/min 08/24/17 05:48 BUN/Creatinine Ratio 6 % 08/24/17 05:48 Glucose 86 mg/dL (75-100) 08/24/17 05:48 Calcium 9.5 mg/dL (8.4-10.2) 08/24/17 05:48 Phosphorus 7.50 mg/dL (2.5-4.5) H 08/24/17 05:48 Magnesium 2.30 mg/dL (1.7-2.3) 08/22/17 16:37 Total Bilirubin 0.70 mg/dL (0.1-1.2) 08/24/17 05:48 AST 15 units/L (5-40) 08/24/17 05:48 ALT 15 units/L (7-56) 08/24/17 05:48 Alkaline Phosphatase 87 units/L (35-129) 08/24/17 05:48 Total Protein 6.7 g/dL (6.3-8.2) 08/24/17 05:48 Albumin 3.5 g/dL (3.9-5) L 08/24/17 05:48 Albumin/Globulin Ratio 1.1 % 08/24/17 05:48 Hepatitis A IgM Ab Non-reactive (NonReactive) 08/24/17 05:48 Hep Bs Antigen Non-reactive (Negative) 08/24/17 05:48 Hep B Core IgM Ab Non-reactive (NonReactive) 08/24/17 05:48 Hepatitis C Antibody Non-reactive (NonReactive) 08/24/17 05:48
[2017-08-25 08:45] VITALS: BP 159/77
[2017-08-25] MEDS ORDERED: COREG PO SCH (10:00)
[2017-08-25] MEDS: COZAAR PO SCH (11:01)
[2017-08-25] MEDS: HEPARIN SUB-Q SCH (11:02)
[2017-08-25] MEDS: PROCARDIA XL PO SCH (11:03)
== END 2017-08-25 13:10 | disposition home or self-care (01) | DRG 304 ==
LOC: ED 15:24 → 3A 19:50 → 2B-ACE 08-24 11:04
PROVIDERS: ADMIT Internal Medicine; ATTEND Hospitalist
PROC: 5A1D70Z Performance of Urinary Filtration, Intermittent, Less than 6 Hours Per Day (ICD-10-PCS; principal; 2017-08-23)
DX: I16.1 Hypertensive emergency (principal); N18.6 End stage renal disease; E87.70 Fluid overload, unspecified; I12.0 Hypertensive chronic kidney disease with stage 5 chronic kidney disease or end stage renal disease; H54.8 Legal blindness, as defined in USA; L29.9 Pruritus, unspecified; D64.9 Anemia, unspecified; E87.5 Hyperkalemia; E78.5 Hyperlipidemia, unspecified; Z91.040 Latex allergy status; Z79.899 Other long term (current) drug therapy; Z91.15 Patient's noncompliance with renal dialysis; Z71.89 Other specified counseling; Z91.14 Patient's other noncompliance with medication regimen; Z99.2 Dependence on renal dialysis
CPT/HCPCS: 36415; 71045; 80048; 80053; 80074; 83735; 84100; 85007; 85025; 85610; 85730; J0360; J1200; J1644; J7030

== ENCOUNTER 2017-10-19 05:32 | Emergency (ER) | payer MEDICARE ==
[2017-10-19 06:42] LABS: Hematocrit 34.1 % (35.5-45.6); Hemoglobin 11.2 gm/dl (11.8-15.2); Mean Corpuscular HGB Conc 33 % (32-34); Mean Corpuscular Hemoglobin 30 pg (28-32); Mean Corpuscular Volume 91 fl (84-94); Platelet Count 151 K/mm3 (140-440); Red Blood Count 3.76 M/mm3 (3.65-5.03); Red Cell Distribution Width 17.6 % (13.2-15.2)
[2017-10-19 06:49] LABS: INR 1.18 (0.87-1.13)
[2017-10-19 07:00] LABS: Calcium 9.3 mg/dL (8.4-10.2)
[2017-10-19] MEDS ORDERED: AFRIN NS ONE (09:17)
[2017-10-19] MEDS ORDERED: CATAPRES PO ONE (09:27)
--- NOTE | 2017-10-19 09:46 | Emergency Department Report ---
ED General Adult HPI - General Chief complaint: Nosebleed Stated complaint: NOSE BLEED Time Seen by Provider: 10/19/17 09:07 Source: patient, EMS Mode of arrival: Wheelchair Limitations: Other - History of Present Illness Initial comments: 57-year-old male esrd dialysis Thursday had a nosebleed this morning so came to the ED prior to trying to get dialysis. His dialysis is in [place] at 11:30 he is here stating that the nosebleed has since resolved but he wants it checked out states he was bleeding from the right nostril which is now resolved and has no other complaints no dizziness no syncope no other complaints. -: Gradual, This morning Radiation: non-radiation Severity scale (0 -10): 0 Worsens with: none (no bleeding in back of throat) - Related Data Home Medications Medication Instructions Recorded Confirmed Last Taken B,C/Ferrous Fum/FA/D3/Zinc Ox 1 each PO DAILY 08/22/17 08/22/17 Unknown [Prorenal Multivitamin Tablet] Calcium Acetate 667 mg PO TID 08/22/17 08/22/17 Unknown Calcium Carbonate [Antacid Extra 300 mg PO DAILY 08/22/17 08/22/17 Unknown Strength] Cholecalciferol (Vitamin D3) 50,000 unit PO QWEEK 08/22/17 08/22/17 Unknown [Vitamin D3] NIFEdipine [Nifedipine ER] 60 mg PO DAILY 08/22/17 08/22/17 Unknown Previous Rx's Medication Instructions Recorded Last Taken Type Carvedilol [Coreg] 12.5 mg PO BID tablet 08/24/17 Unknown Rx Epoetin John 10,000 Unit [Procrit] 10,000 unit IV SHERRI PRN vial 08/24/17 Unknown Rx Losartan [Cozaar] 100 mg PO QDAY tablet 08/24/17 Unknown Rx Zolpidem [Ambien] 5 mg PO QHS PRN tablet 08/24/17 Unknown Rx hydrOXYzine HCL [Atarax] 25 mg PO Q6H PRN tablet 08/24/17 Unknown Rx Allergies Allergy/AdvReac Type Severity Reaction Status Date / Time latex Allergy Hives Verified 08/22/17 16:18 ED Review of Systems ROS: Stated complaint: NOSE BLEED Other details as noted in HPI Comment: All other systems reviewed and negative Respiratory: denies: shortness of breath, SOB with exertion, SOB at rest, stridor Cardiovascular: denies: chest pain, palpitations, dyspnea on exertion, orthopnea , edema, syncope, paroxysmal nocturnal dyspnea Gastrointestinal: denies: abdominal pain, nausea, vomiting, diarrhea, constipation, hematemesis, melena, hematochezia Neurological: denies: headache, weakness, numbness, paresthesias, confusion, abnormal gait, vertigo ED Past Medical Hx - Past Medical History Previous Medical History?: Yes Hx Hypertension: Yes Hx Congestive Heart Failure: No Hx Diabetes: Yes Hx Renal Disease: Yes (ESRD HD M,W,F) Hx Asthma: No Hx COPD: No Additional medical history: Legally Blind - Surgical History Additional Surgical History: AV Fistula IN Left ARM for Dialysis - Social History Smoking Status: Unknown if ever smoked - Medications Home Medications: Home Medications Medication Instructions Recorded Confirmed Last Taken Type B,C/Ferrous Fum/FA/D3/Zinc Ox 1 each PO DAILY 08/22/17 08/22/17 Unknown History [Prorenal Multivitamin Tablet] Calcium Acetate 667 mg PO TID 08/22/17 08/22/17 Unknown History Calcium Carbonate [Antacid Extra 300 mg PO DAILY 08/22/17 08/22/17 Unknown History Strength] Cholecalciferol (Vitamin D3) 50,000 unit PO QWEEK 08/22/17 08/22/17 Unknown History [Vitamin D3] NIFEdipine [Nifedipine ER] 60 mg PO DAILY 08/22/17 08/22/17 Unknown History Carvedilol [Coreg] 12.5 mg PO BID tablet 08/24/17 Unknown Rx Epoetin John 10,000 Unit [Procrit] 10,000 unit IV SHERRI PRN vial 08/24/17 Unknown Rx Losartan [Cozaar] 100 mg PO QDAY tablet 08/24/17 Unknown Rx Zolpidem [Ambien] 5 mg PO QHS PRN tablet 08/24/17 Unknown Rx hydrOXYzine HCL [Atarax] 25 mg PO Q6H PRN tablet 08/24/17 Unknown Rx ED Physical Exam - General Limitations: Other General appearance: alert, in no apparent distress, other (no epistaxis) - Head Head exam: Present: atraumatic, normocephalic - Eye Eye exam: Present: normal appearance, PERRL, EOMI - ENT ENT exam: Present: normal orophraynx, other (no active bleeding noted) - Neck Neck exam: Present: normal inspection. Absent: tenderness, meningismus - Respiratory Respiratory exam: Present: normal lung sounds bilaterally. Absent: respiratory distress, wheezes, rales, rhonchi, stridor, chest wall tenderness, accessory muscle use, decreased breath sounds, prolonged expiratory - Cardiovascular Cardiovascular Exam: Present: regular rate, normal rhythm - GI/Abdominal GI/Abdominal exam: Present: soft. Absent: distended, tenderness, guarding, rebound, rigid, mass, bruit, pulsatile mass - Extremities Exam Extremities exam: Absent: joint swelling, calf tenderness - Back Exam Back exam: Present: normal inspection. Absent: CVA tenderness (L), muscle spasm , paraspinal tenderness, vertebral tenderness - Neurological Exam Neurological exam: Present: alert, oriented X3, CN II-XII intact. Absent: motor sensory deficit ED Course Vital Signs 10/19/17 10/19/17 10/19/17 05:58 08:18 08:30 Temperature 98.2 F Pulse Rate 74 75 Respiratory 18 17 Rate Blood Pressure 126/63 124/60 O2 Sat by Pulse 94 88 90 Oximetry 10/19/17 10/19/17 08:45 09:51 Temperature Pulse Rate 76 72 Respiratory 15 Rate Blood Pressure 124/60 146/74 O2 Sat by Pulse 82 L Oximetry - Reevaluation(s) Reevaluation #1: 10/19/17 10:07 Patient was given Afrin nasal spray with nasal speculum exam no active site of bleeding was appreciated on either side. He had no bleeding in the mouth or throat epistaxis does appear resolved he was therefore stable for follow-up at his dialysis center ED Medical Decision Making - Lab Data Result diagrams: 10/19/17 06:22 10/19/17 06:22 - Medical Decision Making H&H was stable for outpatient INR was unchanged from previous visit platelet count was unremarkable. No easy bruising EZ bruising no current or ongoing epistaxis was appreciated he was therefore clear to go to dialysis now is remaining of his laboratory studies were essentially consistent with previous visits and he was felt to be stable to be transferred for dialysis Critical care attestation.: If time is entered above; I have spent that time in minutes in the direct care of this critically ill patient, excluding procedure time. ED Disposition Clinical Impression: Epistaxis, ESRD (end stage renal disease) on dialysis Disposition: DC-01 TO HOME OR SELFCARE Is pt being admited?: No Condition: Stable Instructions: Epistaxis (ED) Additional Instructions: [facility] dialysis center now return if new or alarming symptoms or pressure for recurrent bleeding if worsening persistent symptoms return immediately to the ED or call 911 Referrals: KAITY LEBLANC MD [Primary Care Provider] - 3-5 Days Time of Disposition: 10:09
[2017-10-19 09:52] VITALS: BP 146/74
[2017-10-19] MEDS ORDERED: HURRICAINE ONE 20% TOPICAL SPRAY MM NR (10:00)
== END 2017-10-19 10:52 | disposition home or self-care (01) ==
LOC: ED 05:32
DX: R04.0 Epistaxis (principal); E11.22 Type 2 diabetes mellitus with diabetic chronic kidney disease; I12.0 Hypertensive chronic kidney disease with stage 5 chronic kidney disease or end stage renal disease; N18.6 End stage renal disease; Z99.2 Dependence on renal dialysis
CPT/HCPCS: 36415; 80048; 85027; 85610; 85730

== ENCOUNTER 2018-03-09 12:01 | Emergency (ER) | payer MEDICARE ==
[2018-03-09] MEDS ORDERED: NORCO 5/325 PO ONE (13:09)
--- NOTE | 2018-03-09 13:09 | Emergency Department Report ---
Blank Doc - Documentation Documentation: Patient is a 58-year-old [place] male with past medical history of HIV was complaining of several days of right lower extremity pain. Patient states pain is mostly in the posterior thigh and calf. Brief physical exam patient does have some tenderness however there is no overlying cellulitis. Patient will have NOW done to rule out DVT
[2018-03-09] MEDS ORDERED: CLEOCIN IM ONE (14:52)
[2018-03-09] MEDS ORDERED: MOTRIN PO ONE (14:58)
--- NOTE | 2018-03-09 14:58 | Emergency Department Report ---
ED Lower Extremity HPI - General Chief Complaint: Extremity Injury, Upper Stated Complaint: R LEG PAIN/ L TOE PAIN Time Seen by Provider: 03/09/18 13:02 Source: patient, EMS Mode of arrival: Wheelchair Limitations: Physical Limitation - History of Present Illness Initial Comments: This is a 58-year-old male nontoxic in appearance with no signs of distress present to the ER with right calf and posterior knee pain x1 week. Patient denies any trauma. Patient denies any fever, chills, headache, nausea, vomiting , chest pain, shortness of breathe, numbness or tingling. Patient denies any drug allergies. Patient stated that he had similar symptoms to his left leg. Patient stated that symptoms just resolved with taking pain medications. Patient denies any pus or drainage. Patient stated PMH includes HIV, DM, and HTN. MD Complaint: knee injury -: week(s) (1) Injury: Thigh: Right, Knee: Right Severity: mild Severity scale (0 -10): 8 Improves With: immobilization Worsens With: weight bearing, movement, palpation Associated Symptoms: swelling, able to partially bear weight, ambulatory. denies: snap/pop sensation, numbness, tingling, unable to bear weight - Related Data Home Medications Medication Instructions Recorded Confirmed Last Taken B,C/Ferrous Fum/FA/D3/Zinc Ox 1 each PO DAILY 08/22/17 08/22/17 Unknown [Prorenal Multivitamin Tablet] Calcium Acetate 667 mg PO TID 08/22/17 08/22/17 Unknown Calcium Carbonate [Antacid Extra 300 mg PO DAILY 08/22/17 08/22/17 Unknown Strength] Cholecalciferol (Vitamin D3) 50,000 unit PO QWEEK 08/22/17 08/22/17 Unknown [Vitamin D3] NIFEdipine [Nifedipine ER] 60 mg PO DAILY 08/22/17 08/22/17 Unknown Previous Rx's Medication Instructions Recorded Last Taken Type Carvedilol [Coreg] 12.5 mg PO BID tablet 08/24/17 Unknown Rx Epoetin John 10,000 Unit [Procrit] 10,000 unit IV SHERRI PRN vial 08/24/17 Unknown Rx Losartan [Cozaar] 100 mg PO QDAY tablet 08/24/17 Unknown Rx Zolpidem [Ambien] 5 mg PO QHS PRN tablet 08/24/17 Unknown Rx hydrOXYzine HCL [Atarax] 25 mg PO Q6H PRN tablet 08/24/17 Unknown Rx Acetaminophen/Codeine [Tylenol 1 tab PO Q6H PRN #12 tab 03/09/18 Unknown Rx /Codeine # 3 tab] Clindamycin [Clindamycin CAP] 300 mg PO Q6H 7 Days #28 capsule 03/09/18 Unknown Rx Ibuprofen [Motrin] 600 mg PO Q8H PRN #30 tablet 03/09/18 Unknown Rx Allergies Allergy/AdvReac Type Severity Reaction Status Date / Time latex Allergy Hives Verified 08/22/17 16:18 ED Review of Systems ROS: Stated complaint: R LEG PAIN/ L TOE PAIN Other details as noted in HPI Constitutional: denies: chills, fever Eyes: denies: eye pain, eye discharge, vision change ENT: denies: ear pain, throat pain Respiratory: denies: cough, shortness of breath, wheezing Cardiovascular: denies: chest pain, palpitations Endocrine: no symptoms reported Gastrointestinal: denies: abdominal pain, nausea, diarrhea Genitourinary: denies: urgency, dysuria Musculoskeletal: arthralgia. denies: back pain, joint swelling Skin: denies: rash, lesions Neurological: denies: headache, weakness, paresthesias Psychiatric: denies: anxiety, depression Hematological/Lymphatic: denies: easy bleeding, easy bruising ED Past Medical Hx - Past Medical History Hx Hypertension: Yes Hx Congestive Heart Failure: No Hx Diabetes: Yes Hx Renal Disease: Yes (ESRD HD M,W,F) Hx Asthma: No Hx COPD: No Hx HIV: Yes Additional medical history: Legally Blind, herpes I and II,open sores all over body - Surgical History Additional Surgical History: AV Fistula IN Left ARM for Dialysis - Social History Smoking Status: Never Smoker Substance Use Type: Alcohol - Medications Home Medications: Home Medications Medication Instructions Recorded Confirmed Last Taken Type B,C/Ferrous Fum/FA/D3/Zinc Ox 1 each PO DAILY 08/22/17 08/22/17 Unknown History [Prorenal Multivitamin Tablet] Calcium Acetate 667 mg PO TID 08/22/17 08/22/17 Unknown History Calcium Carbonate [Antacid Extra 300 mg PO DAILY 08/22/17 08/22/17 Unknown History Strength] Cholecalciferol (Vitamin D3) 50,000 unit PO QWEEK 08/22/17 08/22/17 Unknown History [Vitamin D3] NIFEdipine [Nifedipine ER] 60 mg PO DAILY 08/22/17 08/22/17 Unknown History Carvedilol [Coreg] 12.5 mg PO BID tablet 08/24/17 Unknown Rx Epoetin John 10,000 Unit [Procrit] 10,000 unit IV SHERRI PRN vial 08/24/17 Unknown Rx Losartan [Cozaar] 100 mg PO QDAY tablet 08/24/17 Unknown Rx Zolpidem [Ambien] 5 mg PO QHS PRN tablet 08/24/17 Unknown Rx hydrOXYzine HCL [Atarax] 25 mg PO Q6H PRN tablet 08/24/17 Unknown Rx Acetaminophen/Codeine [Tylenol 1 tab PO Q6H PRN #12 tab 03/09/18 Unknown Rx /Codeine # 3 tab] Clindamycin [Clindamycin CAP] 300 mg PO Q6H 7 Days #28 capsule 03/09/18 Unknown Rx Ibuprofen [Motrin] 600 mg PO Q8H PRN #30 tablet 03/09/18 Unknown Rx ED Physical Exam - General Limitations: Physical Limitation General appearance: alert, in no apparent distress - Head Head exam: Present: atraumatic, normocephalic - Eye Eye exam: Present: normal appearance - ENT ENT exam: Present: mucous membranes moist - Neck Neck exam: Present: normal inspection - Respiratory Respiratory exam: Present: normal lung sounds bilaterally. Absent: respiratory distress - Cardiovascular Cardiovascular Exam: Present: regular rate, normal rhythm. Absent: systolic murmur, diastolic murmur, rubs, gallop - GI/Abdominal GI/Abdominal exam: Present: soft, normal bowel sounds - Rectal Rectal exam: Present: deferred - Extremities Exam Extremities exam: Present: normal inspection, full ROM, tenderness, normal capillary refill, calf tenderness. Absent: joint swelling - Expanded Lower Extremity Exam Right Hip exam: Present: normal inspection, full ROM. Absent: tenderness, swelling Upper Leg exam: Present: normal inspection, full ROM, tenderness (posterior), swelling. Absent: abrasion, laceration, ecchymosis, deformity, crepidus, dislocation, erythema Knee exam: Present: normal inspection, full ROM. Absent: tenderness, swelling, abrasion, laceration Lower Leg exam: Present: normal inspection, full ROM, tenderness (calf region). Absent: swelling, abrasion, laceration, ecchymosis, deformity, crepidus, dislocation, erythema, palpable cord, Gemini's sign Ankle exam: Present: normal inspection, full ROM. Absent: tenderness, swelling Foot/Toe exam: Present: normal inspection, full ROM. Absent: tenderness, swelling Neuro vascular tendon exam: Present: no vascular compromise. Absent: pulse deficit, abnormal cap refill, motor deficit, sensory deficit, tendon deficit, extremity cold to touch, pallor, abnormal 2-point discrimination, decreased fine /light touch, foot drop, peroneal nerve deficit, significant pain with passive ROM of distal joint Gait: Positive: observed and limited by pain - Back Exam Back exam: Present: normal inspection, full ROM - Neurological Exam Neurological exam: Present: alert, oriented X3 - Psychiatric Psychiatric exam: Present: normal affect, normal mood - Skin Skin exam: Present: warm, dry, intact, normal color. Absent: rash ED Course Vital Signs 03/09/18 12:02 Temperature 99.5 F Pulse Rate 85 Respiratory 20 Rate Blood Pressure 148/68 O2 Sat by Pulse 99 Oximetry - Reevaluation(s) Reevaluation #1: 03/09/18 15:09 Patient is speaking in full sentences with no signs of distress noted. - Consultations Consultation #1: 03/09/18 15:09 Patient has been seen by Dr. Reaves examined and screened patient and agrees to ED plan of care and stated to discharge with ortho follow-up ED Lower Extremity MDM - Medical Decision Making This is a 58-year-old male that presents with calf pain and swelling. Patient is stable and was examined by me and Dr. Reaves. As per Dr. Reaves request, no further work-up needed at this time and to have patient follow-up with orthopedic doctor. I did give patient Clinda IM 600 mg in the ED. Patient will be discharged with Clinda empirically and Tylenol with Codeine. I did give patient strict precautions to return to the ED RIKY if smyptoms such as increased swelling, pus, draiainge, fever, chills, or any abnormal symptoms. Patient was instructed to Follow-up with a primary care/orthopedic doctor in 24 hours or if symptoms worsen and continue return to emergency room as soon as possible. At time of discharge, the patient does not seem toxic or ill in appearance. No acute signs of distress noted. Patient agrees to discharge treatment plan of care. No further questions noted by the patient. Critical care attestation.: If time is entered above; I have spent that time in minutes in the direct care of this critically ill patient, excluding procedure time. ED Disposition Clinical Impression: Right calf pain Disposition: DC-01 TO HOME OR SELFCARE Is pt being admited?: No Does the pt Need Aspirin: No Condition: Stable Instructions: Cellulitis (ED), Abscess (ED) Additional Instructions: Follow-up with a primary care/orthopedic doctor in 24 hours or if symptoms worsen and continue return to emergency room as soon as possible. Prescriptions: Acetaminophen/Codeine [Tylenol /Codeine # 3 tab] 1 tab PO Q6H PRN #12 tab PRN Reason: Pain , Severe (7-10) Clindamycin [Clindamycin CAP] 300 mg PO Q6H 7 Days #28 capsule Ibuprofen [Motrin] 600 mg PO Q8H PRN #30 tablet PRN Reason: Pain Referrals: PRIMARY CARE, [Primary Care Provider] - 3-5 Days JOO SCHRADER MD [Staff Physician] - 3-5 Days ARIADNA ROMERO MD [Staff Physician] - 3-5 Days BREEZY DANG MD [Staff Physician] - 3-5 Days [facility] [Outside] - 3-5 Days [facility] [Outside] - 3-5 Days
[2018-03-09 15:40] VITALS: BP 169/86
== END 2018-03-09 15:47 | disposition home or self-care (01) ==
LOC: ED 12:01
DX: M25.561 Pain in right knee (principal); I12.0 Hypertensive chronic kidney disease with stage 5 chronic kidney disease or end stage renal disease; E11.22 Type 2 diabetes mellitus with diabetic chronic kidney disease; N18.6 End stage renal disease; Z99.2 Dependence on renal dialysis; Z91.040 Latex allergy status
CPT/HCPCS: 96372

== ENCOUNTER 2018-05-30 16:57 | Emergency (ER) | payer MEDICARE ==
[2018-05-30 17:04] VITALS: BP 146/82
[2018-05-30] MEDS ORDERED: ZOFRAN IM ONE (17:17)
[2018-05-30] MEDS ORDERED: MORPHINE IM ONE (17:17)
--- NOTE | 2018-05-30 17:22 | Emergency Department Report ---
ED General Adult HPI - General Chief complaint: Skin Rash Stated complaint: ITCHING (SHINGLES) Time Seen by Provider: 05/30/18 17:11 Source: patient, EMS Mode of arrival: Stretcher Limitations: Other - History of Present Illness Initial comments: Patient is 58 years old male, end stage renal disease on hemodialysis. Patient had dialysis on Thursday and his next dialysis on Thursday. Patient presented to the ER complaining of bilateral upper back pain and rash that been going on and off for the last 2 months. Patient stated that he was diagnosed with shingles and he received acyclovir and that did help his symptoms very much. Patient denying any itching is just complaining of painful to touch area. Patient denied any fever, nausea or vomiting. Patient denied any headache, chest pain or shortness of breath. - Related Data Home Medications Medication Instructions Recorded Confirmed Last Taken B,C/Ferrous Fum/FA/D3/Zinc Ox 1 each PO DAILY 08/22/17 08/22/17 Unknown [Prorenal Multivitamin Tablet] Calcium Acetate 667 mg PO TID 08/22/17 08/22/17 Unknown Calcium Carbonate [Antacid Extra 300 mg PO DAILY 08/22/17 08/22/17 Unknown Strength] NIFEdipine [Nifedipine ER] 60 mg PO DAILY 08/22/17 04/14/18 Unknown Previous Rx's Medication Instructions Recorded Last Taken Type Carvedilol [Coreg] 12.5 mg PO BID tablet 08/24/17 Unknown Rx Epoetin John 10,000 Unit [Procrit] 10,000 unit IV SHERRI PRN vial 08/24/17 Unknown Rx Losartan [Cozaar] 100 mg PO QDAY tablet 08/24/17 Unknown Rx Acetaminophen/Codeine [Tylenol 1 tab PO Q6H PRN #12 tab 04/14/18 Unknown Rx /Codeine # 3 tab] Losartan [Cozaar] 100 mg PO QDAY 30 Days tablet 04/14/18 Unknown Rx Acyclovir [Zovirax Cap] 400 mg PO TID #21 cap 05/30/18 Unknown Rx Ondansetron [Zofran Odt] 4 mg PO Q8HR PRN #10 tab.rapdis 05/30/18 Unknown Rx oxyCODONE /ACETAMINOPHEN [Percocet 1 tab PO Q6HR PRN #10 tablet 05/30/18 Unknown Rx 5/325] Allergies Allergy/AdvReac Type Severity Reaction Status Date / Time latex Allergy Hives Verified 08/22/17 16:18 ED Review of Systems ROS: Stated complaint: ITCHING (SHINGLES) Other details as noted in HPI Comment: All other systems reviewed and negative Constitutional: denies: chills, fever Respiratory: denies: cough Cardiovascular: denies: chest pain, palpitations, dyspnea on exertion Gastrointestinal: denies: abdominal pain, nausea, vomiting Skin: lesions Neurological: denies: headache, weakness ED Past Medical Hx - Past Medical History Previous Medical History?: Yes Hx Hypertension: Yes Hx Congestive Heart Failure: No Hx Diabetes: Yes Hx Renal Disease: Yes (ESRD HD M,W,F) Hx Asthma: No Hx COPD: No Hx HIV: Yes Additional medical history: Legally Blind, herpes I and II,open sores all over body - Surgical History Additional Surgical History: AV Fistula IN Left ARM for Dialysis - Social History Smoking Status: Never Smoker Substance Use Type: Alcohol - Medications Home Medications: Home Medications Medication Instructions Recorded Confirmed Last Taken Type B,C/Ferrous Fum/FA/D3/Zinc Ox 1 each PO DAILY 08/22/17 08/22/17 Unknown History [Prorenal Multivitamin Tablet] Calcium Acetate 667 mg PO TID 08/22/17 08/22/17 Unknown History Calcium Carbonate [Antacid Extra 300 mg PO DAILY 08/22/17 08/22/17 Unknown History Strength] NIFEdipine [Nifedipine ER] 60 mg PO DAILY 08/22/17 04/14/18 Unknown History Carvedilol [Coreg] 12.5 mg PO BID tablet 08/24/17 Unknown Rx Epoetin John 10,000 Unit [Procrit] 10,000 unit IV SHERRI PRN vial 08/24/17 Unknown Rx Losartan [Cozaar] 100 mg PO QDAY tablet 08/24/17 Unknown Rx Acetaminophen/Codeine [Tylenol 1 tab PO Q6H PRN #12 tab 04/14/18 Unknown Rx /Codeine # 3 tab] Losartan [Cozaar] 100 mg PO QDAY 30 Days tablet 04/14/18 Unknown Rx Acyclovir [Zovirax Cap] 400 mg PO TID #21 cap 05/30/18 Unknown Rx Ondansetron [Zofran Odt] 4 mg PO Q8HR PRN #10 tab.rapdis 05/30/18 Unknown Rx oxyCODONE /ACETAMINOPHEN [Percocet 1 tab PO Q6HR PRN #10 tablet 05/30/18 Unknown Rx 5/325] ED Physical Exam - General Limitations: Other General appearance: alert, in no apparent distress - Head Head exam: Present: atraumatic, normocephalic, normal inspection - Eye Eye exam: Present: normal appearance, PERRL - ENT ENT exam: Present: normal exam, normal orophraynx, mucous membranes moist - Neck Neck exam: Present: normal inspection, full ROM. Absent: tenderness, meningismus, lymphadenopathy, thyromegaly - Respiratory Respiratory exam: Present: normal lung sounds bilaterally - Cardiovascular Cardiovascular Exam: Present: regular rate, normal rhythm, normal heart sounds - GI/Abdominal GI/Abdominal exam: Present: soft, normal bowel sounds. Absent: distended, tenderness, guarding, rebound, rigid, organomegaly, bruit, pulsatile mass - Extremities Exam Extremities exam: Present: normal inspection, full ROM - Back Exam Back exam: Present: full ROM. Absent: tenderness, CVA tenderness (R), CVA tenderness (L), paraspinal tenderness, vertebral tenderness - Neurological Exam Neurological exam: Present: alert, CN II-XII intact, reflexes normal - Skin Skin exam: Present: dry, vesicles, other (patient hobble back is with multiple area of healed vesicles, area is very tender to touch. No evidence of erythema or necrotizing fasciitis.) ED Course Vital Signs 05/30/18 17:01 Temperature 98 F Pulse Rate 88 Respiratory 18 Rate Blood Pressure 146/82 O2 Sat by Pulse 94 Oximetry ED Medical Decision Making - Lab Data Result diagrams: 05/30/18 17:19 05/30/18 17:19 - Medical Decision Making Mr Kenney is 58 years old male, end stage renal disease on hemodialysis. Patient had dialysis on Thursday and will be dialyzed on Thursday. Patient presented to the ER complaining of bilateral upper back pain and rash that been going on and off for the last 2 months. Patient stated that he was diagnosed with shingles and he received acyclovir and that did help his symptoms very much. Patient denying any itching is just complaining of painful to touch area. Patient denied any fever, nausea or vomiting. Patient denied any headache, chest pain or shortness of breath. Patient presentation is typical for an outbreak off a shingle. I give patient morphine for pain which she helped his pain a lot. Patient potassium came back at 5.7, I discuss the results with his vice president consulting services Dr. Palencia. Dr. Palencia advised to give 30 g Kayexalate and patient can be discharged and will be dialyzed tomorrow. I also started the patient on acyclovir for 7 days. Critical care attestation.: If time is entered above; I have spent that time in minutes in the direct care of this critically ill patient, excluding procedure time. ED Disposition Clinical Impression: Shingles outbreak, End stage renal disease on dialysis, Hyperkalemia Disposition: - TO HOME OR SELFCARE Is pt being admited?: No Condition: Stable Instructions: Chronic Kidney Disease (ED), Herpes Zoster (ED) Additional Instructions: Please make sure he would have your dialysis tomorrow since her potassium slightly increased. Prescriptions: Acyclovir [Zovirax Cap] 400 mg PO TID #21 cap Ondansetron [Zofran Odt] 4 mg PO Q8HR PRN #10 tab.rapdis PRN Reason: Nausea And Vomiting oxyCODONE /ACETAMINOPHEN [Percocet 5/325] 1 tab PO Q6HR PRN #10 tablet PRN Reason: Pain Referrals: PRIMARY CARE, [Primary Care Provider] - 3-5 Days
[2018-05-30 17:35] LABS: Hematocrit 37.1 % (35.5-45.6); Hemoglobin 11.8 gm/dl (11.8-15.2); Mean Corpuscular HGB Conc 32 % (32-34); Mean Corpuscular Hemoglobin 27 pg (28-32); Mean Corpuscular Volume 86 fl (84-94); Platelet Count 123 K/mm3 (140-440); Red Blood Count 4.29 M/mm3 (3.65-5.03); Red Cell Distribution Width 17.4 % (13.2-15.2)
[2018-05-30 17:53] LABS: Calcium 9.6 mg/dL (8.4-10.2)
[2018-05-30 18:19] LABS: Basophils % (Manual) 0 % (0.0-1.8); Total Cells Counted 100
[2018-05-30 18:20] LABS: Anisocytosis 1+; Large Platelets Few; Ovalocytes 1+; Platelet Estimate Cons; Tear Drop Cells Few
[2018-05-30] MEDS ORDERED: KIONEX PO ONE (18:47)
[2018-05-30] MEDS ORDERED: ATIVAN ONE (19:39)
[2018-05-30] MEDS ORDERED: BENADRYL IV ONE (20:10)
== END 2018-05-30 20:30 | disposition home or self-care (01) ==
LOC: ED 16:57
DX: B02.9 Zoster without complications (principal); E87.5 Hyperkalemia; I12.0 Hypertensive chronic kidney disease with stage 5 chronic kidney disease or end stage renal disease; E11.22 Type 2 diabetes mellitus with diabetic chronic kidney disease; N18.6 End stage renal disease; Z99.2 Dependence on renal dialysis; Z91.040 Latex allergy status
CPT/HCPCS: 36415; 80048; 85007; 85025; 96372; 96374; 99283; J1200; J2270; J2405; J2060

== ENCOUNTER 2019-02-16 18:08 | Emergency (ER) | payer MEDICARE ==
--- NOTE | 2019-02-16 19:06 | Emergency Department Report ---
ED General Adult HPI - General Chief complaint: Medical Clearance Stated complaint: FISTULA BLEEDING Time Seen by Provider: 02/16/19 18:52 Source: EMS Mode of arrival: Stretcher Limitations: No Limitations - History of Present Illness Initial comments: Patient is a 59-year-old male that presents emergency room for management of his bleeding AV shunt. Patient states he was at dialysis and dialysis nurse could not get his shunt to stop bleeding. Patient states that EMS applied a dressing and the bleeding has stopped. Patient denies chest pain. Patient denies slight pain. Patient denies left arm pain. Patient denies any physical complaints. Patient denies shortness of breath. Patient denies dizziness. -: Sudden Location: upper extremity Severity scale (0 -10): 0 Consistency: now resolved Improves with: other (direct pressure) Worsens with: none Associated Symptoms: denies: confusion, chest pain, cough, diaphoresis, fever/chills, headaches, loss of appetite, malaise, nausea/vomiting, rash, seizure, shortness of breath, syncope, weakness Treatments Prior to Arrival: other (there are pressure and sterile dressing to site) - Related Data Home Medications Medication Instructions Recorded Confirmed Last Taken NIFEdipine [Nifedipine ER] 60 mg PO DAILY 08/22/17 08/09/18 Unknown Loratadine 10 mg PO DAILY 08/09/18 08/09/18 Unknown Minoxidil [Loniten] 5 mg PO DAILY 08/09/18 08/09/18 Unknown Sevelamer Carbonate [Renvela] 800 mg PO DAILY 08/09/18 08/09/18 Unknown Previous Rx's Medication Instructions Recorded Last Taken Type hydrOXYzine HCL [Atarax] 25 mg PO BID PRN 10 Days #12 tablet 06/15/18 Unknown Rx Carvedilol [Coreg] 12.5 mg PO BID #60 tablet 08/12/18 Unknown Rx Acyclovir [Zovirax Cap] 400 mg PO TID #21 cap 02/16/19 Unknown Rx Allergies Allergy/AdvReac Type Severity Reaction Status Date / Time latex Allergy Hives Verified 06/15/18 13:05 ED Review of Systems ROS: Stated complaint: FISTULA BLEEDING Other details as noted in HPI Constitutional: denies: chills, fever Eyes: denies: eye pain, eye discharge, vision change ENT: denies: ear pain, throat pain Respiratory: denies: cough, shortness of breath, wheezing Cardiovascular: denies: chest pain, palpitations Endocrine: no symptoms reported Gastrointestinal: denies: abdominal pain, nausea, diarrhea Genitourinary: denies: urgency, dysuria Musculoskeletal: denies: back pain, joint swelling, arthralgia Skin: denies: rash, lesions Neurological: denies: headache, weakness, paresthesias Psychiatric: denies: anxiety, depression Hematological/Lymphatic: denies: easy bleeding, easy bruising ED Past Medical Hx - Past Medical History Previous Medical History?: Yes Hx Hypertension: Yes Hx Congestive Heart Failure: No Hx Diabetes: Yes Hx Renal Disease: Yes (ESRD HD M,W,F) Hx Seizures: Yes Hx Asthma: No Hx COPD: No Hx HIV: Yes Additional medical history: Legally Blind, herpes I and II,open sores all over body - Surgical History Past Surgical History?: Yes Additional Surgical History: AV Fistula IN Left ARM for Dialysis - Family History Family history: no significant - Social History Smoking Status: Never Smoker Substance Use Type: None - Medications Home Medications: Home Medications Medication Instructions Recorded Confirmed Last Taken Type NIFEdipine [Nifedipine ER] 60 mg PO DAILY 08/22/17 08/09/18 Unknown History hydrOXYzine HCL [Atarax] 25 mg PO BID PRN 10 Days #12 tablet 06/15/18 08/09/18 Unknown Rx Loratadine 10 mg PO DAILY 08/09/18 08/09/18 Unknown History Minoxidil [Loniten] 5 mg PO DAILY 08/09/18 08/09/18 Unknown History Sevelamer Carbonate [Renvela] 800 mg PO DAILY 08/09/18 08/09/18 Unknown History Carvedilol [Coreg] 12.5 mg PO BID #60 tablet 08/12/18 Unknown Rx Acyclovir [Zovirax Cap] 400 mg PO TID #21 cap 02/16/19 Unknown Rx ED Physical Exam - General Limitations: No Limitations General appearance: alert, in no apparent distress - Head Head exam: Present: atraumatic, normocephalic - Eye Eye exam: Present: normal appearance - ENT ENT exam: Present: mucous membranes moist - Neck Neck exam: Present: normal inspection - Respiratory Respiratory exam: Present: normal lung sounds bilaterally. Absent: respiratory distress - Cardiovascular Cardiovascular Exam: Present: regular rate, normal rhythm. Absent: systolic murmur, diastolic murmur, rubs, gallop - GI/Abdominal GI/Abdominal exam: Present: soft, normal bowel sounds - Rectal Rectal exam: Present: deferred - Extremities Exam Extremities exam: Present: normal inspection - Back Exam Back exam: Present: normal inspection - Neurological Exam Neurological exam: Present: alert, oriented X3 - Psychiatric Psychiatric exam: Present: normal affect, normal mood - Skin Skin exam: Present: warm, dry, intact, normal color. Absent: rash ED Course Vital Signs 02/16/19 02/16/19 02/16/19 18:36 19:00 19:10 Temperature 98.1 F Pulse Rate 77 77 79 Respiratory 20 13 15 Rate Blood Pressure 204/96 Blood Pressure 184/95 212/102 [Right] O2 Sat by Pulse 100 94 98 Oximetry 02/16/19 02/16/19 02/16/19 19:27 19:29 20:01 Temperature 98.1 F Pulse Rate 79 79 95 H Respiratory 16 9 L Rate Blood Pressure 212/102 212/102 184/100 Blood Pressure [Right] O2 Sat by Pulse 98 95 Oximetry 02/16/19 20:46 Temperature 98 F Pulse Rate 72 Respiratory 16 Rate Blood Pressure Blood Pressure 166/85 [Right] O2 Sat by Pulse 100 Oximetry - Reevaluation(s) Reevaluation #1: Initial evaluation done. Patient's bleeding is controlled. No signs of active bleeding. Sterile dressing will be removed and site will be 02/16/19 19:02 Patient just removed and no active bleeding noted. Patient site redressed with a sterile dressing. Patient's blood pressure elevated and patient will be given 0.2 mg clonidine. 02/16/19 19:25 No active bleeding noted. Patient's blood pressure is improved. Patient's current blood pressure is 176/80. See vital signs list. Discussed all clinical findings with patient. Patient is stable for discharge. Patient will be discharged home. Patient agrees to plan of care. Patient given discharge instructions. Patient voiced understanding of discharge instructions. Patient states that he has chronic cold sores and needs a refill of his Valtrex. Patient will be given a refill prescription for his acyclovir. 02/16/19 20:24 ED Medical Decision Making - Medical Decision Making Patient is a 59-year-old male is emergency room with complaints of bleeding dialysis fistula. Patient had uncontrolled bleeding until EMS placed a pressure dressing. Dressing was removed and site was assessed. No active bleeding noted. Sterile dressing replaced onto site. Site checked 2 times and no active bleeding noted. - Differential Diagnosis bleeding from dialysis shunt Critical care attestation.: If time is entered above; I have spent that time in minutes in the direct care of this critically ill patient, excluding procedure time. ED Disposition Clinical Impression: End stage renal disease on dialysis, ESRD needing dialysis Bleeding from dialysis shunt Qualifiers: Encounter type: initial encounter Qualified Code(s): T82.838A - Hemorrhage due to vascular prosthetic devices, implants and grafts, initial encounter HTN (hypertension) Qualifiers: Hypertension type: unspecified Qualified Code(s): I10 - Essential (primary) hypertension Disposition: TO HOME OR SELFCARE Is pt being admited?: No Does the pt Need Aspirin: No Condition: Stable Instructions: Hemodialysis (ED), Hypertension (ED), End-Stage Kidney Disease (ED) Additional Instructions: Patient to follow-up with primary care in 2-3 days. Patient to monitor blood pressure at home. Patient to continue with current dialysis schedule. Patient to return to ER if bleeding starts again.. Patient to return to ER if condition worsens. Patient to take meds as directed. Patient to increase water. Patient to rest. Patient to continue all meds. Prescriptions: Acyclovir [Zovirax Cap] 400 mg PO TID #21 cap Referrals: STEFANI MONTENEGRO MD [Primary Care Provider] - 2-3 Days Time of Disposition: 20:28
[2019-02-16] MEDS ORDERED: CATAPRES PO ONE (19:25)
[2019-02-16] MEDS ORDERED: CATAPRES ONE (19:25)
[2019-02-16 20:46] VITALS: BP 166/85
== END 2019-02-16 21:34 | disposition home or self-care (01) ==
LOC: ED 18:08
DX: T82.838A Hemorrhage due to vascular prosthetic devices, implants and grafts, initial encounter (principal); E11.22 Type 2 diabetes mellitus with diabetic chronic kidney disease; I12.0 Hypertensive chronic kidney disease with stage 5 chronic kidney disease or end stage renal disease; N18.6 End stage renal disease; Z99.2 Dependence on renal dialysis; Y92.89 Other specified places as the place of occurrence of the external cause
CPT/HCPCS: 82962

== ENCOUNTER 2019-02-27 05:06 | Emergency (ER) | payer MEDICARE ==
[2019-02-27 06:11] LABS: Hematocrit 33.4 % (35.5-45.6); Hemoglobin 10.9 gm/dl (11.8-15.2); Mean Corpuscular HGB Conc 33 % (32-34); Mean Corpuscular Volume 89 fl (84-94); Platelet Count 118 K/mm3 (140-440); Red Blood Count 3.73 M/mm3 (3.65-5.03); Red Cell Distribution Width 19.9 % (13.2-15.2)
[2019-02-27 06:30] LABS: Calcium 9.2 mg/dL (8.4-10.2)
[2019-02-27] MEDS ORDERED: ATARAX PO PRN (06:45)
--- NOTE | 2019-02-27 07:01 | Emergency Department Report ---
ED General Adult HPI - General Chief complaint: Extremity Injury, Upper Stated complaint: LEFT ARM BLEEDING/PORT ACCESS Time Seen by Provider: 02/27/19 06:03 Source: patient, RN notes reviewed, old records reviewed Mode of arrival: Ambulatory Limitations: No Limitations - History of Present Illness Initial comments: This is a pleasant 59-year-old gentleman. He has a left upper extremity fistula, and typically receives dialysis Thursday, Thursday, Thursday. He also has a history of hypertension and diabetes. He indicates he has not taken his blood pressure medication today. He presents to the ER with a complaint of resolve the left upper extremity fistula bleeding/oozing. It started earlier once today after he scratched it. It is now resolved. It resolved with direct digital pressure, and gentle pressure bandage. The patient denies other acute complaints. He has chronic pruritus. He makes no complaint of fever, chest pain, shortness of breath which is new or different. -: Gradual Location: left, upper extremity Severity scale (0 -10): 0 Consistency: now resolved Improves with: other Worsens with: other (symptoms exacerbated by scratch) - Related Data Home Medications Medication Instructions Recorded Confirmed Last Taken NIFEdipine [Nifedipine ER] 60 mg PO DAILY 08/22/17 08/09/18 Unknown Loratadine 10 mg PO DAILY 08/09/18 08/09/18 Unknown Minoxidil [Loniten] 5 mg PO DAILY 08/09/18 08/09/18 Unknown Sevelamer Carbonate [Renvela] 800 mg PO DAILY 08/09/18 08/09/18 Unknown Previous Rx's Medication Instructions Recorded Last Taken Type hydrOXYzine HCL [Atarax] 25 mg PO BID PRN 10 Days #12 tablet 06/15/18 Unknown Rx Carvedilol [Coreg] 12.5 mg PO BID #60 tablet 08/12/18 Unknown Rx Acyclovir [Zovirax Cap] 400 mg PO TID #21 cap 02/16/19 Unknown Rx Allergies Allergy/AdvReac Type Severity Reaction Status Date / Time latex Allergy Hives Verified 06/15/18 13:05 ED Review of Systems ROS: Stated complaint: LEFT ARM BLEEDING/PORT ACCESS Other details as noted in HPI Constitutional: denies: fever Eyes: denies: eye discharge ENT: denies: congestion Respiratory: denies: cough Cardiovascular: denies: chest pain Gastrointestinal: other (chronic abdominal distention) Musculoskeletal: other (chronic skin lesion) Skin: rash, lesions, pruritus, other (chronic pruritus) Neurological: denies: headache Hematological/Lymphatic: easy bleeding, other (patient denies rectal bleeding) ED Past Medical Hx - Past Medical History Previous Medical History?: Yes Hx Hypertension: Yes Hx Congestive Heart Failure: No Hx Diabetes: Yes Hx Renal Disease: Yes (ESRD HD M,W,F) Hx Seizures: Yes Hx Asthma: No Hx COPD: No Hx HIV: Yes Additional medical history: Legally Blind, herpes I and II,open sores all over body - Surgical History Past Surgical History?: Yes Additional Surgical History: AV Fistula IN Left ARM for Dialysis - Social History Smoking Status: Never Smoker Substance Use Type: Alcohol - Medications Home Medications: Home Medications Medication Instructions Recorded Confirmed Last Taken Type NIFEdipine [Nifedipine ER] 60 mg PO DAILY 08/22/17 08/09/18 Unknown History hydrOXYzine HCL [Atarax] 25 mg PO BID PRN 10 Days #12 tablet 06/15/18 08/09/18 Unknown Rx Loratadine 10 mg PO DAILY 08/09/18 08/09/18 Unknown History Minoxidil [Loniten] 5 mg PO DAILY 08/09/18 08/09/18 Unknown History Sevelamer Carbonate [Renvela] 800 mg PO DAILY 08/09/18 08/09/18 Unknown History Carvedilol [Coreg] 12.5 mg PO BID #60 tablet 08/12/18 Unknown Rx Acyclovir [Zovirax Cap] 400 mg PO TID #21 cap 02/16/19 Unknown Rx ED Physical Exam - General Limitations: Physical Limitation General appearance: alert, in no apparent distress, obese - Head Head exam: Present: atraumatic, normocephalic - Eye Eye exam: Present: normal appearance, EOMI. Absent: nystagmus - ENT ENT exam: Present: normal exam, normal orophraynx, mucous membranes moist, normal external ear exam - Neck Neck exam: Present: normal inspection, full ROM. Absent: tenderness, meningismus - Respiratory Respiratory exam: Present: normal lung sounds bilaterally. Absent: respiratory distress - Cardiovascular Cardiovascular Exam: Present: regular rate, normal rhythm, normal heart sounds. Absent: bradycardia, systolic murmur, diastolic murmur, rubs, gallop - GI/Abdominal GI/Abdominal exam: Present: soft, distended. Absent: tenderness, guarding, rebound, rigid, pulsatile mass - Rectal Rectal exam: Present: deferred - Extremities Exam Extremities exam: Present: normal inspection, other (chronic excoriated lesions noted on upper and lower extremities. Left upper extremity fistula with no redness, pus or streaking, appropriate thrill is noted. No active bleeding at this time. Bandage has been applied.) - Back Exam Back exam: Present: normal inspection, full ROM. Absent: tenderness, CVA tenderness (R), CVA tenderness (L), paraspinal tenderness, vertebral tenderness - Neurological Exam Neurological exam: Present: alert, other (Extraocular movements intact. Tongue midline. No facial droop. Facial sensation intact to light touch in the V1, V2, V3 distribution bilaterally. 5 and 5 strength in 4 extremities.. Sensation is intact to light touch in 4 extremities.). Absent: motor sensory deficit - Psychiatric Psychiatric exam: Present: normal affect, normal mood - Skin Skin exam: Present: warm, dry, intact, normal color. Absent: rash ED Course Vital Signs 02/27/19 02/27/19 05:12 06:17 Temperature 98.2 F 98 F Pulse Rate 86 85 Respiratory 18 18 Rate Blood Pressure 219/94 Blood Pressure 242/117 [Right] O2 Sat by Pulse 98 96 Oximetry ED Medical Decision Making - Lab Data Result diagrams: 02/27/19 05:40 02/27/19 05:40 Vital Signs 02/27/19 02/27/19 05:12 06:17 Temperature 98.2 F 98 F Pulse Rate 86 85 Respiratory 18 18 Rate Blood Pressure 219/94 Blood Pressure 242/117 [Right] O2 Sat by Pulse 98 96 Oximetry Lab Results 02/27/19 02/27/19 Range/Units 05:40 05:40 WBC 7.4 (4.5-11.0) K/mm3 RBC 3.73 (3.65-5.03) M/mm3 Hgb 10.9 L (11.8-15.2) gm/dl Hct 33.4 L (35.5-45.6) % MCV 89 (84-94) fl MCH 29 (28-32) pg MCHC 33 (32-34) % RDW 19.9 H (13.2-15.2) % Plt Count 118 L (140-440) K/mm3 Eos % (Auto) Full Stack Developer Sodium 141 (137-145) mmol/L Potassium 3.9 (3.6-5.0) mmol/L Chloride 96.2 L (98-107) mmol/L Carbon Dioxide 29 (22-30) mmol/L Anion Gap 20 mmol/L BUN 40 H (9-20) mg/dL Creatinine 6.9 H (0.8-1.5) mg/dL Estimated GFR 10 ml/min BUN/Creatinine Ratio 6 % Glucose 118 H (75-100) mg/dL Calcium 9.2 (8.4-10.2) mg/dL - Medical Decision Making Differential diagnosis, including but not limited to: Chronic pruritus, chronic hypertension, superficial bleeding, now resolved Assessment and plan: See year-old gentleman with resolved oozing/bleeding left upper extremity fistula. He is afebrile with otherwise reassuring vital signs with the exception of chronic hypertension. He is given his morning blood pressure medications. He does not appear to be clinically fluid overloaded. He endorses no other acute complaints. He has follow-up with his wiener packer tomorrow for his routine dialysis. Please reference the [employer] clinical policy on hypertension which is not acutely symptomatic. Patient can continue wound dressing and follow-up with his wiener packer tomorrow. Critical care attestation.: If time is entered above; I have spent that time in minutes in the direct care of this critically ill patient, excluding procedure time. ED Disposition Clinical Impression: Itching Bleeding from dialysis shunt Qualifiers: Encounter type: subsequent encounter Qualified Code(s): T82.838D - Hemorrhage due to vascular prosthetic devices, implants and grafts, subsequent encounter HTN (hypertension) Qualifiers: Hypertension type: unspecified Qualified Code(s): I10 - Essential (primary) hypertension Disposition: DC-01 TO HOME OR SELFCARE Is pt being admited?: No Does the pt Need Aspirin: No Condition: Stable Additional Instructions: Continue current outpatient medications. Follow-up tomorrow for dialysis as scheduled. Keep the left upper extremity bandage applied. Follow up with her primary care doctor or wiener packer within the next 7-10 days for chronic hypertension and elevated blood pressure. extermination supervisor complications of hy pertension and elevated blood pressure includes stroke, heart attack, disability, paralysis, loss of quality of life. Therefore, it is very important to take blood pressure medications as prescribed. Please return to the emergency room right away with new, worsening or different symptoms not present on initial emergency room evaluation. Referrals: STEFANI MONTENEGRO MD [Primary Care Provider] - 3-5 Days DREW MARTINEZ MD [Referring] - 3-5 Days
[2019-02-27 07:41] VITALS: BP 164/80
[2019-02-27 09:28] LABS: Total Cells Counted 100
[2019-02-27 09:30] LABS: Hypochromasia Few; Platelet Estimate Consistent w Auto; Target Cells Few
[2019-02-27] MEDS ORDERED: PROCARDIA XL PO SCH (10:00)
[2019-02-27] MEDS ORDERED: COREG PO SCH (10:00)
[2019-02-28] MEDS ORDERED: NACL 0.9 (PRIMING MACHINE ONLY DIALYSIS) MC ONE (15:13)
== END 2019-02-27 07:20 | disposition home or self-care (01) ==
LOC: ED 05:06 → 3A 02-28 03:50 → UNDOADMIN 02-28 03:50
DX: T82.838A Hemorrhage due to vascular prosthetic devices, implants and grafts, initial encounter (principal); L29.9 Pruritus, unspecified; I12.0 Hypertensive chronic kidney disease with stage 5 chronic kidney disease or end stage renal disease; E11.22 Type 2 diabetes mellitus with diabetic chronic kidney disease; N18.6 End stage renal disease; Z99.2 Dependence on renal dialysis; Z79.4 Long term (current) use of insulin; Z98.890 Other specified postprocedural states; Z91.040 Latex allergy status; Y84.1 Kidney dialysis as the cause of abnormal reaction of the patient, or of later complication, without mention of misadventure at the time of the procedure; Y92.89 Other specified places as the place of occurrence of the external cause
CPT/HCPCS: 36415; 80048; 85007; 85025; 99283; J7030

== ENCOUNTER 2019-02-27 16:22 | Inpatient (IN) | payer MEDICARE ==
[2019-02-27] MEDS ORDERED: SOLU-Medrol IV ONE (16:45)
[2019-02-27] MEDS ORDERED: BENADRYL IV ONE (16:46)
--- NOTE | 2019-02-27 16:46 | Emergency Department Report ---
ED General Adult HPI - General Chief complaint: Allergic Reaction Stated complaint: ITCHING ALL OVER Time Seen by Provider: 02/27/19 16:44 Source: patient Mode of arrival: Stretcher Limitations: No Limitations - History of Present Illness Initial comments: Patient is a 59-year-old male that presents emergency room with complaints of itching and shortness of breath. Patient states he has chronic issues with this is worse. Patient is not sure having an allergic reaction to something. Patient denies chest pain. Patient denies cough. Patient denies wheezing. Patient denies chest pain. Patient states she took hydroxyzine just prior to coming to the hospital via ambulance. Patient states the medication helped. -: Sudden Consistency: constant Improves with: medication, rest Worsens with: movement Associated Symptoms: rash. denies: confusion, chest pain, cough, diaphoresis, fever/chills, headaches, loss of appetite, malaise, nausea/vomiting, seizure, shortness of breath, syncope, weakness - Related Data Home Medications Medication Instructions Recorded Confirmed Last Taken NIFEdipine [Nifedipine ER] 60 mg PO DAILY 08/22/17 02/27/19 Unknown Loratadine 10 mg PO DAILY 08/09/18 02/27/19 Unknown Minoxidil [Loniten] 5 mg PO DAILY 08/09/18 02/27/19 Unknown Sevelamer Carbonate [Renvela] 800 mg PO DAILY 08/09/18 02/27/19 Unknown Previous Rx's Medication Instructions Recorded Last Taken Type hydrOXYzine HCL [Atarax] 25 mg PO BID PRN 10 Days #12 tablet 06/15/18 Unknown Rx Carvedilol [Coreg] 12.5 mg PO BID #60 tablet 08/12/18 Unknown Rx Allergies Allergy/AdvReac Type Severity Reaction Status Date / Time latex Allergy Hives Verified 06/15/18 13:05 ED Review of Systems ROS: Stated complaint: ITCHING ALL OVER Other details as noted in HPI Constitutional: denies: chills, fever Eyes: denies: eye pain, eye discharge, vision change ENT: denies: ear pain, throat pain Respiratory: shortness of breath. denies: cough, wheezing Cardiovascular: denies: chest pain, palpitations Endocrine: no symptoms reported Gastrointestinal: denies: abdominal pain, nausea, diarrhea Genitourinary: denies: urgency, dysuria Musculoskeletal: denies: back pain, joint swelling, arthralgia Skin: rash, pruritus. denies: lesions Neurological: denies: headache, weakness, paresthesias Psychiatric: denies: anxiety, depression Hematological/Lymphatic: denies: easy bleeding, easy bruising ED Past Medical Hx - Past Medical History Previous Medical History?: Yes Hx Hypertension: Yes Hx Congestive Heart Failure: No Hx Diabetes: Yes Hx Renal Disease: Yes (ESRD HD M,W,F) Hx Seizures: Yes Hx Asthma: No Hx COPD: No Hx HIV: Yes Additional medical history: Legally Blind, herpes I and II,open sores all over body - Surgical History Past Surgical History?: Yes Additional Surgical History: AV Fistula IN Left ARM for Dialysis - Family History Family history: no significant - Social History Smoking Status: Never Smoker Substance Use Type: Alcohol - Medications Home Medications: Home Medications Medication Instructions Recorded Confirmed Last Taken Type NIFEdipine [Nifedipine ER] 60 mg PO DAILY 08/22/17 02/27/19 Unknown History hydrOXYzine HCL [Atarax] 25 mg PO BID PRN 10 Days #12 tablet 06/15/18 02/27/19 Unknown Rx Loratadine 10 mg PO DAILY 08/09/18 02/27/19 Unknown History Minoxidil [Loniten] 5 mg PO DAILY 08/09/18 02/27/19 Unknown History Sevelamer Carbonate [Renvela] 800 mg PO DAILY 08/09/18 02/27/19 Unknown History Carvedilol [Coreg] 12.5 mg PO BID #60 tablet 08/12/18 02/27/19 Unknown Rx ED Physical Exam - General Limitations: No Limitations General appearance: alert, in no apparent distress - Head Head exam: Present: atraumatic, normocephalic - Eye Eye exam: Present: normal appearance, PERRL Pupils: Present: normal accommodation - ENT ENT exam: Present: mucous membranes moist - Neck Neck exam: Present: normal inspection - Respiratory Respiratory exam: Present: normal lung sounds bilaterally. Absent: respiratory distress, wheezes, rales, rhonchi, stridor, chest wall tenderness, accessory muscle use, decreased breath sounds, prolonged expiratory - Cardiovascular Cardiovascular Exam: Present: regular rate, normal rhythm. Absent: systolic murmur, diastolic murmur, rubs, gallop - GI/Abdominal GI/Abdominal exam: Present: soft, normal bowel sounds. Absent: distended, tenderness, guarding - Rectal Rectal exam: Present: deferred - Extremities Exam Extremities exam: Present: normal inspection - Back Exam Back exam: Present: normal inspection - Neurological Exam Neurological exam: Present: alert, oriented X3 - Psychiatric Psychiatric exam: Present: normal affect, normal mood - Skin Skin exam: Present: warm, dry, intact, rash, erythema, urticaria ED Course Vital Signs 02/27/19 02/27/19 02/27/19 16:38 20:15 22:44 Temperature 98.4 F 97.9 F Pulse Rate 91 H 82 86 Respiratory 16 15 18 Rate Blood Pressure 135/112 196/90 Blood Pressure 190/96 [Right] O2 Sat by Pulse 98 97 97 Oximetry - Reevaluation(s) Reevaluation #1: On initial evaluation patient found to be hypoxic and patient was placed on oxygen. Patient's saturation increased to 98% from 90% 02/27/19 16:54 Reevaluation #2: Patient's O2 saturation is better. Patient taken off oxygen and saturation stayed above 98%.. Patient states his itching and shortness of breath for the same Patient resting in bed. 02/27/19 18:30 Reevaluation #3: Patient's O2 saturation dropped again. Patient placed back on oxygen. O2 saturation increased after being placed on oxygen.. Patient is still complaining of itching and shortness of breath. 02/27/19 19:01 Reevaluation #4: I discussed all results with patient. I discussed plan of care with patient. Patient agrees with plan of care and admission. Patient will be admitted to the hospitalist service. 02/27/19 21:26 - Consultations Consultation #1: Hospitals consulted for admission. Hospitalist to admit patient. Hospitalist to assume care of patient. 02/27/19 21:24 ED Medical Decision Making - Lab Data Result diagrams: 02/27/19 16:51 02/27/19 16:51 - EKG Data -: EKG Interpreted by Me EKG shows normal: sinus rhythm, intervals, QRS complexes, ST-T waves Rate: normal - EKG Data Interpretation: other (abnormal axis) - Radiology Data Radiology results: report reviewed CHEST 1 VIEW INDICATION / CLINICAL INFORMATION: sob. COMPARISON: None available. FINDINGS: SUPPORT DEVICES: None. HEART / MEDIASTINUM: Slightly enlarged. LUNGS / PLEURA: No significant pulmonary or pleural abnormality. No pneumothorax. ADDITIONAL FINDINGS: No significant additional findings. IMPRESSION: 1. No acute findings. TECHNICAL DATA: Inhaled administration followed by immediate static images of chest in multiple projections coordinated with breathing instructions. Followed by immediate static images of chest in multiple projections post I.V. injection. 26.0 millicuries of 133 Xenon is administered by inhalation. Pulmonary wash-in, equilibrium, and washout phases are performed. Then, 4.11 millicuries of 99m Tc MAA is administered intravenously. FINDINGS: The ventilation scan is normal without evidence of delayed washout. The perfusion scan demonstrates homogeneous uptake without evidence of segmental or subsegmental defects. IMPRESSION: Normal lung scan. - Medical Decision Making Patient is a 59-year-old male that presents to the emergency room with complaints of shortness of breath and itching. Patient was given Benadryl and Cipro Medrol for what appeared to be allergic reaction. Patient found to be hypoxic on initial exam. Patient was then placed on oxygen. Patient's saturation never recovered any time the patient was placed on room air patient's saturation dropped to 90. Critical Care Time: Yes Critical care attestation.: If time is entered above; I have spent that time in minutes in the direct care of this critically ill patient, excluding procedure time. Critical Care Time: 35 minutes ED Disposition Clinical Impression: SOB (shortness of breath), Itching, Hypoxia, Pruritus, End stage renal disease on dialysis, Elevated troponin I level Allergic reaction Qualifiers: Encounter type: initial encounter Qualified Code(s): T78.40XA - Allergy, unspecified, initial encounter Disposition: OP ADMIT IP TO THIS HOSP Is pt being admited?: Yes Does the pt Need Aspirin: No Condition: Critical Time of Disposition: 21:27
[2019-02-27 17:11] LABS: Hemoglobin 10.5 gm/dl (11.8-15.2); Mean Corpuscular HGB Conc 33 % (32-34); Mean Corpuscular Hemoglobin 29 pg (28-32); Mean Corpuscular Volume 89 fl (84-94); Platelet Count 126 K/mm3 (140-440); Red Blood Count 3.62 M/mm3 (3.65-5.03)
[2019-02-27 17:37] LABS: Albumin 3.9 g/dL (3.9-5); Calcium 9.4 mg/dL (8.4-10.2)
--- NOTE | 2019-02-27 18:02 | XRay Report ---
CHEST 1 VIEW INDICATION / CLINICAL INFORMATION: sob. COMPARISON: None available. FINDINGS: SUPPORT DEVICES: None. HEART / MEDIASTINUM: Slightly enlarged. LUNGS / PLEURA: No significant pulmonary or pleural abnormality. No pneumothorax. ADDITIONAL FINDINGS: No significant additional findings. IMPRESSION: 1. No acute findings. Signer Name: Slim Castellon MD Signed: 02/27/2019 5:57 PM Workstation Name: [email or web address]
[2019-02-27 18:20] LABS: Basophils % (Manual) 0 % (0.0-1.8); Total Cells Counted 100
[2019-02-27 18:21] LABS: Anisocytosis 1+; Hypochromasia 1+; Ovalocytes 1+; Platelet Estimate Consistent w Auto
[2019-02-27 18:28] LABS: Creatine Kinase MB 3.7 ng/mL (0.0-4.0)
[2019-02-27 19:00] LABS: Chol/HDL Ratio 1.48 %; HDL Cholesterol 47 mg/dL (40-59); LDL Cholesterol,Direct 25 mg/dL (50-130)
--- NOTE | 2019-02-27 21:12 | Nuclear Medicine Report ---
TECHNICAL DATA: Inhaled administration followed by immediate static images of chest in multiple projections coordin ed with breathing instructions. Followed by immediate static images of chest in multiple projections post I.V. injection. 26.0 millicuries of 133 Xenon is administered by inhalation. Pulmonary wash-in, equilibrium, and washout phases are performed. Then, 4.11 millicuries of 99m Tc MA A is administered intravenously. FINDINGS: The ventilation scan is normal without evidence of delayed washout. The perfusion scan demonstrates h omogeneous uptake without evidence of segmental or subsegmental defects. IMPRESSION: Normal lung scan. Signer Name: Saida Lloyd MD Signed: 02/27/2019 9:08 PM Workstation Name: [id number]
[2019-02-27] MEDS ORDERED: BENADRYL IV PRN (22:23)
[2019-02-27] MEDS ORDERED: TYLENOL PO PRN (22:24)
[2019-02-27] MEDS ORDERED: ZOFRAN IV PRN (22:25)
[2019-02-27] MEDS ORDERED: D50W (25GM) Syringe IV PRN (22:26)
[2019-02-27] MEDS ORDERED: ATARAX PO PRN (22:29)
[2019-02-28] MEDS: APRESOLINE IV PRN ×2 (02:48→06:51)
[2019-02-28] MEDS ORDERED: APRESOLINE ONE (02:48)
--- NOTE | 2019-02-28 05:56 | History and Physical Report ---
CHIEF COMPLAINT: Generalized body itching. HISTORY OF PRESENT ILLNESS: The patient is a 59-year-old male who came into the Emergency Room complaining of generalized itching and also shortness of breath. The patient said that this is a chronic issue that has gotten worse all of a sudden. There is no history of skin rash, no history of chest pain, nausea or vomiting. Also, the patient denies any fever or chills and said that he took hydroxyzine prior to coming to the Emergency Room that helped his itching. When he got to the Emergency Room, he was evaluated and noted to be hypoxemic, and patient could not get discharge because his oxygen saturation keeps dropping whenever he is taken off oxygen. PAST MEDICAL HISTORY: Pertinent for hypertension, diabetes mellitus, end-stage renal disease, on dialysis on Mondays, Wednesdays, and Fridays, seizure disorder, HIV infection and legal blindness. 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 PAST MEDICAL HISTORY: Pertinent for AV fistula in the left arm for dialysis. FAMILY HISTORY: Noncontributory. SOCIAL HISTORY: The patient does not smoke, drinks alcohol occasionally and does not use illicit drugs. MEDICATIONS: The patient is on nifedipine 60 mg by mouth daily, Atarax 25 mg by mouth twice daily as needed for itching, loratadine 10 mg by mouth daily, minoxidil 5 mg by mouth daily, Renvela 800 mg by mouth daily, carvedilol, Coreg 12.5 mg by mouth twice daily. ALLERGIES: THE PATIENT IS ALLERGIC TO LATEX. REVIEW OF SYSTEMS: CONSTITUTIONAL: There is no fever, no chills, no diaphoresis. HEENT: There is no headache or sore throat. CARDIOVASCULAR SYSTEM: There is no chest pain or orthopnea. RESPIRATORY SYSTEM: Shortness of breath is present. No cough. GASTROINTESTINAL SYSTEM: There is no nausea, no vomiting, no abdominal pain, diarrhea or constipation. NEUROLOGICAL SYSTEM: There is no numbness, no dizziness. No altered mental status. MUSCULOSKELETAL SYSTEM: There is no joint pain or swelling. DERMATOLOGIC SYSTEM: There is no skin rash, but there is itching. GENITOURINARY SYSTEM: There is no dysuria, hematuria, or flank pain. Rest of system review is normal. PHYSICAL EXAMINATION: GENERAL: At the time of exam, the patient was found to be alert, oriented x3 and not in acute distress. At the initial time of presentation showed temperature of 98.4 degrees Fahrenheit, pulse of 91, respirations 16, blood pressure 135/124, O2 sat of 98% on room air. HEENT: Showed pupils to be equal, round, and reactive to light and accommodation. Extraocular muscles are intact. NECK: Supple with no JVD or carotid bruit. CARDIOVASCULAR SYSTEM: Showed normal first and second heart sounds with no gallops or murmurs. RESPIRATORY SYSTEM: Show good air entry on both sides of the lungs with no abnormal breath sounds. GASTROINTESTINAL SYSTEM: Show abdomen to be full, soft, nontender with no organomegaly or rigidity. NEUROLOGIC: Shows no focal deficit. MUSCULOSKELETAL SYSTEM: Show no joint swelling or tenderness. DERMATOLOGICAL SYSTEM: Showing no skin rash. GENITOURINARY SYSTEM: Showing no costovertebral angle tenderness. PERTINENT LABORATORY STUDIES: The patient has CBC done with normal white count, low hemoglobin of 10.5 and low hematocrit of 32. CBC differential showing elevated segmented neutrophil count of 74%. Patient's chemistry shows elevated BUN of 48 and elevated creatinine of 7.4 consistent with end-stage renal disease, on dialysis. The patient's troponin level was elevated with a value of 0.182. The patient's brain natriuretic peptide level is high with a value of 35,000. Rest of chemistry was unremarkable. IMAGING STUDIES: The patient has chest x-ray done that showed no acute findings. Also, the patient had a pulmonary perfusion lung scan done that shows normal lungs scan. DIAGNOSES: 1. Allergic reactions. 2. Hypoxemia. 3. End-stage renal disease, on dialysis. 4. Elevated troponin level. PLAN OF CARE: 1. The patient will be medical floor on remote telemetry. 2. The patient will be on IV Benadryl 25 mg every 6 hours as needed for itching and IV Solu-Medrol 60 mg every 8 hours. 3. The patient will be on p.r.n. medications like Tylenol 650 mg by mouth every 4 hours and Zofran 4 mg IV every 8 hours. 4. The patient will be on his home medications as shown in the medication reconciliation section. 5. The patient will be on consistent carbohydrate, low sodium diet. 6. The patient will be on Accu-Chek before meals and at bedtime, followed by low-dose sliding scale using regular insulin coverage. 7. The patient will have Nephrology consult with Dr. Luis Armando Glover for management of end-stage renal disease, on dialysis. 8. The patient will be on hydralazine 10 mg every 4 hours for blood pressure 160/90 or more. JOB# [id number] OCN/NTS
[2019-02-28] MEDS: SOLU-Medrol IV SCH ×3 (06:21→21:46)
[2019-02-28] MEDS ORDERED: SOLU-Medrol ONE (06:21)
[2019-02-28] MEDS ORDERED: RENVELA PO SCH (08:00)
[2019-02-28] MEDS ORDERED: ZOVIRAX PO SCH (08:00)
[2019-02-28 08:54] LABS: Creatine Kinase MB 2.9 ng/mL (0.0-4.0)
[2019-02-28] MEDS: HumuLIN R SUB-Q SCH ×3 (08:57→16:30)
[2019-02-28] MEDS: PROCARDIA XL PO SCH (09:08)
[2019-02-28] MEDS: LONITEN PO SCH (09:31)
[2019-02-28] MEDS: COREG PO SCH ×2 (09:31→21:45)
[2019-02-28] MEDS ORDERED: NACL 0.9% 100 ML IV PRN (11:53)
--- NOTE | 2019-02-28 12:01 | Consultation ---
History of Present Illness - Reason for Consult Consult date: 02/28/19 end stage renal disease Requesting physician: THOMAS ALVARADO - History of Present Illness This is a 59 y/o M with PMH of ESRD on HD, HTN, HIV, herpes, DM Type 2 diet controlled per pt, and anemia who presented to [facility] with c/o itching and shortness of breath. Pt states he takes Atarax at home, but continues to have itching. CXR showed no acute findings. Pt started on acyclovir and steroids. This pt undergoes outpatient HD at [facility] every MWF. Last HD treatment was 02/25/19. His regular research assistant member is Dr Greene. Pt states he usually has between 3-4 liters removed during his HD treatements. We were consulted to evaluate this pt who has ESRD and requires HD. Past History Past Medical History: anemia, dialysis, ESRD, hypertension Medications and Allergies Allergies Allergy/AdvReac Type Severity Reaction Status Date / Time latex Allergy Hives Verified 06/15/18 13:05 Home Medications Medication Instructions Recorded Confirmed Last Taken Type NIFEdipine [Nifedipine ER] 60 mg PO DAILY 08/22/17 02/27/19 Unknown History hydrOXYzine HCL [Atarax] 25 mg PO BID PRN 10 Days #12 tablet 06/15/18 02/27/19 Unknown Rx Loratadine 10 mg PO DAILY 08/09/18 02/27/19 Unknown History Minoxidil [Loniten] 5 mg PO DAILY 08/09/18 02/27/19 Unknown History Sevelamer Carbonate [Renvela] 800 mg PO DAILY 08/09/18 02/27/19 Unknown History Carvedilol [Coreg] 12.5 mg PO BID #60 tablet 08/12/18 02/27/19 Unknown Rx Active Meds: Active Medications Acetaminophen (Tylenol) 650 mg PO Q4H PRN PRN Reason: Fever >101 Acyclovir (Zovirax) 400 mg PO TID [facility] Last Admin: 02/28/19 08:27 Dose: 400 mg Documented by: Carvedilol (Coreg) 12.5 mg PO BID [facility] Last Admin: 02/28/19 09:31 Dose: 12.5 mg Documented by: Dextrose (D50w (25gm) Syringe) 50 ml IV PRN PRN PRN Reason: Hypoglycemia Diphenhydramine HCl (Benadryl) 25 mg IV Q6H PRN PRN Reason: Itching Last Admin: 02/28/19 08:29 Dose: 25 mg Documented by: Hydralazine HCl (Apresoline) 10 mg IV Q4HR PRN PRN Reason: Hypertension Last Admin: 02/28/19 06:51 Dose: 10 mg Documented by: Hydroxyzine HCl (Atarax) 25 mg PO BID PRN PRN Reason: Itching Last Admin: 02/28/19 08:28 Dose: 25 mg Documented by: Insulin Human Regular (Humulin R) 0 units SUB-Q AC [facility]; Protocol Last Admin: 02/28/19 08:57 Dose: 3 units Documented by: Insulin Human Regular (Humulin R) 0 units SUB-Q QHS [facility]; Protocol Methylprednisolone Sodium Succinate (Solu-Medrol) 60 mg IV Q8HR [facility] Last Admin: 02/28/19 06:21 Dose: 60 mg Documented by: Minoxidil (Loniten) 5 mg PO DAILY [facility] Last Admin: 02/28/19 09:31 Dose: 5 mg Documented by: Nifedipine (Procardia Xl) 60 mg PO DAILY [facility] Last Admin: 02/28/19 09:08 Dose: 60 mg Documented by: Ondansetron HCl (Zofran) 4 mg IV Q8H PRN PRN Reason: Nausea And Vomiting Sevelamer Carbonate (Renvela) 800 mg PO DAILY@0800 [facility] Last Admin: 02/28/19 08:28 Dose: 800 mg Documented by: Review of Systems Constitutional: fatigue, no fever Eyes: bilateral: decreased vision (blind in both eyes) Ears, nose, mouth and throat: tinnitis (in right ear per pt), other (pt reports ), no headache Cardiovascular: shortness of breath, dyspnea on exertion, leg edema, no chest pain Respiratory: shortness of breath, dyspnea on exertion Gastrointestinal: no abdominal pain, no nausea, no vomiting, no diarrhea, no constipation, no hematemesis Rectal: itching Integumentary: rash, sores, other (itching) Neurological: weakness Endocrine: fatigue Exam - Vital Signs Vital signs: Vital Signs Temp Pulse Resp BP Pulse Ox 98.4 F 91 H 16 135/112 98 02/27/19 16:38 02/27/19 16:38 02/27/19 16:38 02/27/19 16:38 02/27/19 16:38 - General Appearance General appearance: well-developed EENT: other (blind in both eyes) Neck: Present: neck supple Respiratory: Decreased Breath Sounds Heart: regular, S1S2, other (ACCESS: Left AVF + thrill and bruit noted) Gastrointestinal: Present: normoactive bowel sounds (round). Absent: tenderness Integumentary: rash (sores) Neurologic: alert and oriented x3 Musculoskeletal: Present: other (1+ edema to BLE) Psychiatric: cooperative Results - Lab Results 02/27/19 16:51 02/27/19 16:51 Most recent lab results Calcium 9.4 mg/dL (8.4-10.2) 02/27/19 16:51 Assessment and Plan End Stage Renal Disease on HD: - Labs pending today - HD today for UF and clearance, goal UF 3-4 liters as tolerated - Assess need for HD on daily basis - PTH and phosphorus levels pending - D/C renvela 800 mg po daily, will follow up phosphorus level and adjust dose to TID with meals if needed for hyperphosphatemia management - Renally dose meds - This pt undergoes outpatient HD at [facility] - Renal plan d/w Dr Lester Itching: Skin sores: Hx of Herpes - On Hydroxyzine, steroids, and acyclovir - Phosphorus level pending - HD today - Follow up primary recs Hypertensive Urgency: - UF with HD - Resume home medications as appropriate Anemia: - Labs pending - Epogen dosing as needed DM Type 2 diet controlled: - Pt reports he is a diet controlled diabetic - On SSI - As per primary team HIV: - As per primary
[2019-02-28 13:19] LABS: Hematocrit 33.6 % (35.5-45.6); Hemoglobin 10.8 gm/dl (11.8-15.2); Mean Corpuscular HGB Conc 32 % (32-34); Mean Corpuscular Hemoglobin 29 pg (28-32); Mean Corpuscular Volume 91 fl (84-94); Platelet Count 126 K/mm3 (140-440)
[2019-02-28 13:24] LABS: Red Cell Distribution Width 20.2 % (13.2-15.2)
[2019-02-28 13:43] LABS: Calcium 9.5 mg/dL (8.4-10.2)
[2019-02-28] MEDS ORDERED: NORMODYNE IV PRN (13:50)
--- NOTE | 2019-02-28 14:06 | Progress Note ---
Assessment and Plan Assessment and plan: Patient is a 59 yo man with a history of type 2 DM, Seizure disorder, ESRD on HD MWF, blindness and hypertension who presented to [facility] ED with itching and was admitted due to malignant hypertension resistant to therapy in ED. Pruritits with Allergic reaction: treat symptomatically ESRD on HD: Nephrology following Blind: supportive measures Hypertensive Urgency: iv hydralazine prn AOCD: Epogen dosing as needed DM Type 2 diet controlled: ssi, accu HIV per History As per primary Disposition: continue inpatient care, once bp stabilizes then d/c home prolonged inpatient services 32 minutes History Interval history: Patient was seen and examined. Follow-up on current diagnosis. No overnight events reported to me. Patient denies any chest pain, shortness breath, nausea/vomiting or severe headaches. Imaging, nursing note, chart, labs and old chart reviewed. Discussed with patient. Gen: WDWN, NAD, Awake, Alert, Orientated HEENT: NCAT, EOMI, PERRL, OP Clear Neck: supple, no adenopathy, no thyromegaly, no JVD CVS/Heart: RRR, normal S1S2, pulses present bilaterally Chest/Lungs: CTA B, Symmetrical chest expansion, good air entry bilaterally GI/Abdomen: soft, NTND, good bowel sounds, no guarding or rebound /Bladder: no suprapubic tenderness, no CVA or paraspinal tenderness Extermity/Skin: no c/c/e, no obvious rash MSK: FROM x 4 Neuro: CN 2-12 grossly intact, no new focal deficits Psych: calm Hospitalist Physical - Constitutional Vitals: Temp Pulse Resp BP Pulse Ox 98.0 F 72 20 142/67 97 02/28/19 12:08 02/28/19 12:08 02/28/19 12:08 02/28/19 12:08 02/28/19 12:08 Results - Labs CBC & Chem 7: 02/28/19 12:58 02/28/19 12:58 Labs: Laboratory Last Values WBC 6.6 K/mm3 (4.5-11.0) 02/28/19 12:58 RBC 3.70 M/mm3 (3.65-5.03) 02/28/19 12:58 Hgb 10.8 gm/dl (11.8-15.2) L 02/28/19 12:58 Hct 33.6 % (35.5-45.6) L 02/28/19 12:58 MCV 91 fl (84-94) 02/28/19 12:58 MCH 29 pg (28-32) 02/28/19 12:58 MCHC 32 % (32-34) 02/28/19 12:58 RDW 20.2 % (13.2-15.2) H 02/28/19 12:58 Plt Count 126 K/mm3 (140-440) L 02/28/19 12:58 Eos % (Auto) Aircraft Systems Technician 02/27/19 16:51 Add Manual Diff Complete 02/27/19 16:51 Total Counted 100 02/27/19 16:51 Seg Neuts % (Manual) 74.0 % (40.0-70.0) H 02/27/19 16:51 0 % 02/27/19 16:51 5.0 % (13.4-35.0) L 02/27/19 16:51 Reactive Lymphs % (Man) 0 % 02/27/19 16:51 3.0 % (0.0-7.3) 02/27/19 16:51 18.0 % (0.0-4.3) H 02/27/19 16:51 0 % (0.0-1.8) 02/27/19 16:51 0 % 02/27/19 16:51 0 % 02/27/19 16:51 0 % 02/27/19 16:51 0 % 02/27/19 16:51 Nucleated RBC % Not Reportable 02/27/19 16:51 Seg Neutrophils # Man 6.3 K/mm3 (1.8-7.7) 02/27/19 16:51 Band Neutrophils # 0.0 K/mm3 02/27/19 16:51 0.4 K/mm3 (1.2-5.4) L 02/27/19 16:51 Abs React Lymphs (Man) 0.0 K/mm3 02/27/19 16:51 0.3 K/mm3 (0.0-0.8) 02/27/19 16:51 1.5 K/mm3 (0.0-0.4) H 02/27/19 16:51 0.0 K/mm3 (0.0-0.1) 02/27/19 16:51 0.0 K/mm3 02/27/19 16:51 0.0 K/mm3 02/27/19 16:51 0.0 K/mm3 02/27/19 16:51 Blast Cells # 0.0 K/mm3 02/27/19 16:51 WBC Morphology Not Reportable 02/27/19 16:51 Hypersegmented Neuts Not Reportable 02/27/19 16:51 Hyposegmented Neuts Not Reportable 02/27/19 16:51 Hypogranular Neuts Not Reportable 02/27/19 16:51 Not Reportable 02/27/19 16:51 Not Reportable 02/27/19 16:51 Not Reportable 02/27/19 16:51 Not Reportable 02/27/19 16:51 Not Reportable 02/27/19 16:51 Not Reportable 02/27/19 16:51 Consistent w auto 02/27/19 16:51 Not Reportable 02/27/19 16:51 Plt Clumps, EDTA Not Reportable 02/27/19 16:51 Not Reportable 02/27/19 16:51 Not Reportable 02/27/19 16:51 Not Reportable 02/27/19 16:51 Plt Morphology Comment Not Reportable 02/27/19 16:51 RBC Morphology Not Reportable 02/27/19 16:51 Dimorphic RBCs Not Reportable 02/27/19 16:51 Not Reportable 02/27/19 16:51 1+ 02/27/19 16:51 Not Reportable 02/27/19 16:51 1+ 02/27/19 16:51 Not Reportable 02/27/19 16:51 Not Reportable 02/27/19 16:51 Not Reportable 02/27/19 16:51 Not Reportable 02/27/19 16:51 Not Reportable 02/27/19 16:51 Not Reportable 02/27/19 16:51 Not Reportable 02/27/19 16:51 1+ 02/27/19 16:51 Not Reportable 02/27/19 16:51 Not Reportable 02/27/19 16:51 Not Reportable 02/27/19 16:51 Not Reportable 02/27/19 16:51 Not Reportable 02/27/19 16:51 Not Reportable 02/27/19 16:51 Not Reportable 02/27/19 16:51 Acanthocytes (Spur) Not Reportable 02/27/19 16:51 Rouleaux Not Reportable 02/27/19 16:51 Not Reportable 02/27/19 16:51 Not Reportable 02/27/19 16:51 Not Reportable 02/27/19 16:51 Not Reportable 02/27/19 16:51 Hem Pathologist Commnt No 02/27/19 16:51 Sodium 140 mmol/L (137-145) 02/28/19 12:58 Potassium 4.6 mmol/L (3.6-5.0) D 02/28/19 12:58 Chloride 94.8 mmol/L (98-107) L 02/28/19 12:58 Carbon Dioxide 25 mmol/L (22-30) 02/28/19 12:58 25 mmol/L 02/28/19 12:58 BUN 58 mg/dL (9-20) H 02/28/19 12:58 9.0 mg/dL (0.8-1.5) H 02/28/19 12:58 Estimated GFR 7 ml/min 02/28/19 12:58 6 % 02/28/19 12:58 Glucose 159 mg/dL (75-100) H 02/28/19 12:58 POC Glucose 184 (70-105) H 02/28/19 13:02 Calcium 9.5 mg/dL (8.4-10.2) 02/28/19 12:58 Phosphorus 3.60 mg/dL (2.5-4.5) 02/28/19 12:58 0.60 mg/dL (0.1-1.2) 02/27/19 16:51 AST 18 units/L (5-40) 02/27/19 16:51 ALT 17 units/L (7-56) 02/27/19 16:51 124 units/L (35-129) 02/27/19 16:51 40.0 umol/L (25-60) 02/27/19 16:51 93 units/L (55-170) 02/28/19 06:51 CK-MB (CK-2) 2.9 ng/mL (0.0-4.0) 02/28/19 06:51 CK-MB (CK-2) Rel Index 3.1 (0-4) 02/28/19 06:51 0.180 ng/mL (0.00-0.029) H* 02/28/19 06:51 NT-Pro-B Natriuret Pep > 57554 pg/mL (0-900) H 02/27/19 16:51 8.0 g/dL (6.3-8.2) 02/27/19 16:51 3.9 g/dL (3.9-5) 02/27/19 16:51 1.0 % 02/27/19 16:51 Triglycerides 43 mg/dL (2-149) 02/27/19 16:51 Cholesterol 70 mg/dL (50-199) 02/27/19 16:51 25 mg/dL (50-130) L 02/27/19 16:51 47 mg/dL (40-59) 02/27/19 16:51 1.48 % 02/27/19 16:51 PTH Intact 254.1 pg/mL (15-65) H 02/28/19 12:58 Active Medications - Current Medications Current Medications: Generic Name Dose Route Start Last Admin Trade Name Freq PRN Reason Stop Dose Admin Acetaminophen 650 mg 02/27/19 22:24 Tylenol PO Q4H PRN Fever >101 Acyclovir 200 mg 02/28/19 22:00 Zovirax PO Q12HR CASA Carvedilol 12.5 mg 02/28/19 10:00 02/28/19 09:31 Coreg PO 12.5 mg BID CASA Administration Dextrose 50 ml 02/27/19 22:26 D50w (25gm) Syringe IV PRN PRN Hypoglycemia Diphenhydramine HCl 25 mg 02/27/19 22:23 02/28/19 08:29 Benadryl IV 25 mg Q6H PRN Administration Itching Hydralazine HCl 10 mg 02/28/19 02:42 02/28/19 06:51 Apresoline IV 10 mg Q4HR PRN Administration Hypertension Hydroxyzine HCl 25 mg 02/27/19 22:29 02/28/19 08:28 Atarax PO 25 mg BID PRN Administration Itching Sodium Chloride 100 mls @ 999 mls/hr 02/28/19 11:53 Nacl 0.9% IV SHERRI PRN Hypotension Insulin Human Regular 0 units 02/28/19 07:30 02/28/19 13:26 Humulin R SUB-Q 1 units AC CASA Administration Protocol Insulin Human Regular 0 units 02/28/19 22:00 Humulin R SUB-Q QHS CASA Protocol Labetalol HCl 10 mg 02/28/19 13:50 Normodyne IV Q4H PRN HTN SBP=/>180 Methylprednisolone Sodium Succinate 60 mg 02/28/19 06:00 02/28/19 13:26 Solu-Medrol IV 60 mg Q8HR CASA Administration Minoxidil 5 mg 02/28/19 10:00 02/28/19 09:31 Loniten PO 5 mg DAILY CASA Administration Nifedipine 60 mg 02/28/19 10:00 02/28/19 09:08 Procardia Xl PO 60 mg DAILY CASA Administration Ondansetron HCl 4 mg 02/27/19 22:25 Zofran IV Q8H PRN Nausea And Vomiting
[2019-02-28] MEDS: ZOVIRAX PO SCH (21:46)
[2019-02-28 21:59] LABS: Hepatitis A Antibody IgM Non-Reactive (NonReactive); Hepatitis B Core IgM Non-Reactive (NonReactive); Hepatitis B Surface Antigen Non-Reactive (Negative); Hepatitis C Virus Antibody Non-Reactive (NonReactive)
[2019-02-28] MEDS ORDERED: HumuLIN R SUB-Q SCH (22:00)
[2019-03-01] MEDS: SOLU-Medrol IV SCH ×2 (05:25→13:09)
[2019-03-01] MEDS: HumuLIN R SUB-Q SCH ×3 (09:24→18:18)
[2019-03-01] MEDS: PROCARDIA XL PO SCH (11:15)
[2019-03-01] MEDS: ZOVIRAX PO SCH (11:16)
[2019-03-01] MEDS: LONITEN PO SCH (11:16)
[2019-03-01] MEDS: COREG PO SCH (11:16)
--- NOTE | 2019-03-01 11:21 | Progress Note ---
Assessment and Plan End Stage Renal Disease on HD: - no indication for HD today - Assess need for HD on daily basis - Renally dose meds - This pt undergoes outpatient HD at [facility] Itching: Skin sores: Hx of Herpes - On Hydroxyzine, steroids, and acyclovir - Follow up primary recs Hypertensive Urgency: - Resume home medications as appropriate Anemia: - Epogen dosing as needed DM Type 2 diet controlled: - Pt reports he is a diet controlled diabetic - On SSI - As per primary team HIV: - As per primary Subjective Date of service: 03/01/19 Principal diagnosis: ESRD on HD Interval history: tolerated HD well yesterday Objective - Vital Signs Vital signs: Vital Signs - 12hr 02/28/19 02/28/19 03/01/19 23:20 23:28 05:57 Temperature 97.7 F 98.3 F 98.3 F Pulse Rate 72 107 H 76 Respiratory 18 18 Rate Blood Pressure 142/69 154/105 147/67 O2 Sat by Pulse 90 97 97 Oximetry 03/01/19 11:16 Temperature Pulse Rate 13 L Respiratory Rate Blood Pressure O2 Sat by Pulse Oximetry - General Appearance General appearance: well-developed, well-nourished EENT: ATNC, PERRL, mucous membranes moist Neck: no JVD, no carotid bruit Respiratory: Present: Clear to Ascultation Cardiology: regular, S1S2 Gastrointestinal: normoactive bowel sounds, no tenderness, no distended Integumentary: no rash, warm and dry Neurologic: no focal deficit, no asterixis, alert and oriented x3 Musculoskeletal: other (no edema in BLE) Psychiatric: mood/affect appropriate, cooperative - Lab 02/28/19 12:58 02/28/19 12:58 Most recent lab results Calcium 9.5 mg/dL (8.4-10.2) 02/28/19 12:58 Phosphorus 3.60 mg/dL (2.5-4.5) 02/28/19 12:58 Medications & Allergies - Medications Allergies/Adverse Reactions: Allergies latex Allergy (Verified 06/15/18 13:05) Hives Home Medications: Home Medications Medication Instructions Recorded Confirmed Last Taken Type NIFEdipine [Nifedipine ER] 60 mg PO DAILY 08/22/17 02/27/19 Unknown History hydrOXYzine HCL [Atarax] 25 mg PO BID PRN 10 Days #12 tablet 06/15/18 02/27/19 Unknown Rx Loratadine 10 mg PO DAILY 08/09/18 02/27/19 Unknown History Minoxidil [Loniten] 5 mg PO DAILY 08/09/18 02/27/19 Unknown History Sevelamer Carbonate [Renvela] 800 mg PO DAILY 08/09/18 02/27/19 Unknown History Carvedilol [Coreg] 12.5 mg PO BID #60 tablet 08/12/18 02/27/19 Unknown Rx Active Medications: Generic Name Dose Route Start Last Admin Trade Name Freq PRN Reason Stop Dose Admin Acetaminophen 650 mg 02/27/19 22:24 Tylenol PO Q4H PRN Fever >101 Acyclovir 200 mg 02/28/19 22:00 03/01/19 11:16 Zovirax PO 200 mg Q12HR CASA Administration Carvedilol 12.5 mg 02/28/19 10:00 03/01/19 11:16 Coreg PO 12.5 mg BID CASA Administration Dextrose 50 ml 02/27/19 22:26 D50w (25gm) Syringe IV PRN PRN Hypoglycemia Diphenhydramine HCl 25 mg 02/27/19 22:23 02/28/19 08:29 Benadryl IV 25 mg Q6H PRN Administration Itching Hydralazine HCl 10 mg 02/28/19 02:42 02/28/19 06:51 Apresoline IV 10 mg Q4HR PRN Administration Hypertension Hydroxyzine HCl 25 mg 02/27/19 22:29 02/28/19 08:28 Atarax PO 25 mg BID PRN Administration Itching Sodium Chloride 100 mls @ 999 mls/hr 02/28/19 11:53 Nacl 0.9% IV SHERRI PRN Hypotension Insulin Human Regular 0 units 02/28/19 07:30 03/01/19 09:24 Humulin R SUB-Q 2 units AC CASA Administration Protocol Insulin Human Regular 0 units 02/28/19 22:00 02/28/19 22:42 Humulin R SUB-Q 3 units QHS CASA Administration Protocol Labetalol HCl 10 mg 02/28/19 13:50 Normodyne IV Q4H PRN HTN SBP=/>180 Methylprednisolone Sodium Succinate 60 mg 02/28/19 06:00 03/01/19 05:25 Solu-Medrol IV 60 mg Q8HR CASA Administration Minoxidil 5 mg 02/28/19 10:00 03/01/19 11:16 Loniten PO 5 mg DAILY CASA Administration Nifedipine 60 mg 02/28/19 10:00 03/01/19 11:15 Procardia Xl PO 60 mg DAILY CASA Administration Ondansetron HCl 4 mg 02/27/19 22:25 Zofran IV Q8H PRN Nausea And Vomiting
--- NOTE | 2019-03-01 12:41 | Consultation ---
History of Present Illness Consult date: 03/01/19 Consult reason: elevated troponin History of present illness: Patient is a 59-year old man whom is blind and has end stage renal disease on dialysis. Patient presented with complaints of puritus and uncontrolled hypertension, admitted for management. A cardiac consultation has been requested for elevation of troponin. This is likely in the setting of renal disease. Patient has no prior cardiac history and had no prior cardiac workup. Patient denies chest pain, denies unusual shortness of breath and has no palpitations. An ECG is sinus rhythm, no acute ischemic changes. Past History Past Medical History: anemia, dialysis, ESRD, hypertension Medications and Allergies Allergies Allergy/AdvReac Type Severity Reaction Status Date / Time latex Allergy Hives Verified 06/15/18 13:05 Home Medications Medication Instructions Recorded Confirmed Last Taken Type NIFEdipine [Nifedipine ER] 60 mg PO DAILY 08/22/17 02/27/19 Unknown History hydrOXYzine HCL [Atarax] 25 mg PO BID PRN 10 Days #12 tablet 06/15/18 02/27/19 Unknown Rx Loratadine 10 mg PO DAILY 08/09/18 02/27/19 Unknown History Minoxidil [Loniten] 5 mg PO DAILY 08/09/18 02/27/19 Unknown History Sevelamer Carbonate [Renvela] 800 mg PO DAILY 08/09/18 02/27/19 Unknown History Carvedilol [Coreg] 12.5 mg PO BID #60 tablet 08/12/18 02/27/19 Unknown Rx Active Meds: Active Medications Acetaminophen (Tylenol) 650 mg PO Q4H PRN PRN Reason: Fever >101 Acyclovir (Zovirax) 200 mg PO Q12HR CASA Last Admin: 03/01/19 11:16 Dose: 200 mg Documented by: Carvedilol (Coreg) 12.5 mg PO BID CASA Last Admin: 03/01/19 11:16 Dose: 12.5 mg Documented by: Dextrose (D50w (25gm) Syringe) 50 ml IV PRN PRN PRN Reason: Hypoglycemia Diphenhydramine HCl (Benadryl) 25 mg IV Q6H PRN PRN Reason: Itching Last Admin: 02/28/19 08:29 Dose: 25 mg Documented by: Hydralazine HCl (Apresoline) 10 mg IV Q4HR PRN PRN Reason: Hypertension Last Admin: 02/28/19 06:51 Dose: 10 mg Documented by: Hydroxyzine HCl (Atarax) 25 mg PO BID PRN PRN Reason: Itching Last Admin: 02/28/19 08:28 Dose: 25 mg Documented by: Sodium Chloride (Nacl 0.9%) 100 mls @ 999 mls/hr IV SHERRI PRN PRN Reason: Hypotension Insulin Human Regular (Humulin R) 0 units SUB-Q AC [facility]; Protocol Last Admin: 03/01/19 09:24 Dose: 2 units Documented by: Insulin Human Regular (Humulin R) 0 units SUB-Q QHS [facility]; Protocol Last Admin: 02/28/19 22:42 Dose: 3 units Documented by: Labetalol HCl (Normodyne) 10 mg IV Q4H PRN PRN Reason: HTN SBP=/>180 Methylprednisolone Sodium Succinate (Solu-Medrol) 60 mg IV Q8HR [facility] Last Admin: 03/01/19 05:25 Dose: 60 mg Documented by: Minoxidil (Loniten) 5 mg PO DAILY [facility] Last Admin: 03/01/19 11:16 Dose: 5 mg Documented by: Nifedipine (Procardia Xl) 60 mg PO DAILY [facility] Last Admin: 03/01/19 11:15 Dose: 60 mg Documented by: Ondansetron HCl (Zofran) 4 mg IV Q8H PRN PRN Reason: Nausea And Vomiting Physical Examination Vital Signs Temp Pulse Resp BP Pulse Ox 98.4 F 91 H 16 135/112 98 02/27/19 16:38 02/27/19 16:38 02/27/19 16:38 02/27/19 16:38 02/27/19 16:38 General appearance: no acute distress HEENT: Positive: Other (Blind) Cardiac: Positive: Reg Rate and Rhythm Lungs: Positive: Decreased Breath Sounds Neuro: Positive: Grossly Intact Extremities: Absent: edema Results 02/28/19 12:58 02/28/19 12:58 CBC 02/28/19 Range/Units 12:58 WBC 6.6 (4.5-11.0) K/mm3 RBC 3.70 (3.65-5.03) M/mm3 Hgb 10.8 L (11.8-15.2) gm/dl Hct 33.6 L (35.5-45.6) % Plt Count 126 L (140-440) K/mm3 Comprehensive Metabolic Panel 02/28/19 Range/Units 12:58 Sodium 140 (137-145) mmol/L Potassium 4.6 D (3.6-5.0) mmol/L Chloride 94.8 L (98-107) mmol/L Carbon Dioxide 25 (22-30) mmol/L BUN 58 H (9-20) mg/dL Creatinine 9.0 H (0.8-1.5) mg/dL Glucose 159 H (75-100) mg/dL Calcium 9.5 (8.4-10.2) mg/dL Assessment and Plan Pruritus Uncontrolled Hypertension ESRD on dialysis Blindness Elevated troponin, nonspecific patient denies chest pain We will obtain an echocardiogram for LVEF assessment. Otherwise, conservative cardiac management.
--- NOTE | 2019-03-01 14:25 | Discharge Summary ---
Providers - Providers Date of Admission: 02/27/19 22:19 Date of discharge: 03/01/19 Attending physician: LISANDRA MO 02/28/19 06:00 Consult to Physician [CONS] Routine Comment: Consulting Provider: SHAHLA CREWS Physician Instructions: Reason For Exam: ESRD ON DIALYSIS 02/28/19 13:41 Consult to Physician [CONS] Routine Comment: Consulting Provider: SUSHILA HIGGINS Physician Instructions: Reason For Exam: NSTEMI type 2 [facility] Condition: Critical Pertinent studies: CXR VQ scan Hospital course: Patient is a 59 yo man with a history of type 2 DM, Seizure disorder, ESRD on HD MWF, blindness and hypertension who presented to [facility] ED with itching and was admitted due to malignant hypertension resistant to therapy in ED. BP on admission was 225/110. Discharge Diagnosis: Pruritits with Allergic reaction: treat symptomatically ESRD on HD: Nephrology consulted Clinically Blind: supportive measures Hypertensive Urgency: stable on discharge AOCD: Epogen dosing as needed DM Type 2 diet controlled: Mx with ssi, HIV - documented in this admission but patient denied the history Chronically elevated troponin ; patient refused to stay for 2d echo Disposition: Home with self care Physical exam Gen: WDWN, NAD, Awake, Alert, Orientated HEENT: NCAT, EOMI, PERRL, OP Clear Neck: supple, no adenopathy, no thyromegaly, no JVD CVS/Heart: RRR, normal S1S2, pulses present bilaterally Chest/Lungs: CTA B, Symmetrical chest expansion, good air entry bilaterally GI/Abdomen: soft, NTND, good bowel sounds, no guarding or rebound /Bladder: no suprapubic tenderness, no CVA or paraspinal tenderness Extermity/Skin: no c/c/e, no obvious rash MSK: FROM x 4 Neuro: CN 2-12 grossly intact, no new focal deficits Psych: calm Disposition: DC-01 TO HOME OR SELFCARE Time spent for discharge: 34 minutes Core Measure Documentation - Palliative Care Palliative Care/ Comfort Measures: Not Applicable - Core Measures Any of the following diagnoses?: none Exam - Constitutional Vitals: Temp Pulse Resp BP Pulse Ox 98.3 F 13 L 18 147/67 97 03/01/19 05:57 03/01/19 11:16 03/01/19 05:57 03/01/19 05:57 03/01/19 05:57 Plan Activity: advance as tolerated Weight Bearing Status: Partial Weight Bearing Diet: renal Special Instructions: record daily weights, record daily BP diary Additional Instructions: Need TTE as outpt Follow up with: [employer] DINA [Primary Care Provider] - 3-5 Days SUSHILA HIGGINS MD [Staff Physician] - 7 Days Prescriptions: hydrOXYzine HCL [Atarax] 25 mg PO BID PRN 10 Days #12 tablet PRN Reason: Itching
[2019-03-01 19:33] VITALS: BP 159/75
== END 2019-03-01 22:00 | disposition home or self-care (01) | DRG 606 ==
LOC: ED 16:22 → 3A 22:19
PROVIDERS: ADMIT Internal Medicine; ATTEND Internal Medicine
PROC: 5A1D70Z Performance of Urinary Filtration, Intermittent, Less than 6 Hours Per Day (ICD-10-PCS; principal; 2019-02-28)
DX: L29.9 Pruritus, unspecified (principal); N18.6 End stage renal disease; I12.0 Hypertensive chronic kidney disease with stage 5 chronic kidney disease or end stage renal disease; I16.0 Hypertensive urgency; D69.6 Thrombocytopenia, unspecified; T78.40XA Allergy, unspecified, initial encounter; R09.02 Hypoxemia; H54.8 Legal blindness, as defined in USA; E11.22 Type 2 diabetes mellitus with diabetic chronic kidney disease; Z21 Asymptomatic human immunodeficiency virus [HIV] infection status; L98.9 Disorder of the skin and subcutaneous tissue, unspecified; G40.909 Epilepsy, unspecified, not intractable, without status epilepticus; D63.8 Anemia in other chronic diseases classified elsewhere; Z99.2 Dependence on renal dialysis
CPT/HCPCS: 36415; 71045; 78582; 80048; 80053; 80061; 80074; 82140; 82550; 82553; 82962; 83880; 83970; 84100; 84484; 85007; 85025; 85027; 93005; 93010; 93306; G0378; A9540; A9558; J0360; J1200; J1815; J2930

== ENCOUNTER 2019-03-19 20:55 | Emergency (ER) | payer MEDICARE ==
--- NOTE | 2019-03-19 21:09 | Event Note ---
ED Screening Note Date of service: 03/19/19 Time: 21:05 ED Screening Note: This is a 59 y.o. M. that presents to the ER with right calf pain and swelling x 2 days. PMH of DM, ESRD on dialysis, legally blind, & HTN This initial assessment/diagnostic orders/clinical plan/treatment(s) is/are sub ject to change based on patients health status, clinical progression and re- assessment by fellow clinical providers in the ED. Further treatment and workup at subsequent clinical providers discretion. Patient/guardian urged not to elope from the ED as their condition may be serious if not clinically assessed and managed. Initial orders include: Labs
[2019-03-19 21:53] LABS: INR 1.34 (0.87-1.13)
[2019-03-19 21:54] LABS: Partial Thromboplastin Time 36.9 Sec. (24.2-36.6)
[2019-03-19] MEDS ORDERED: NORCO 5/325 PO ONE (23:19)
--- NOTE | 2019-03-19 23:24 | Emergency Department Report ---
HPI - General Chief Complaint: Extremity Problem,Nontraumatic Time Seen by Provider: 03/19/19 21:05 - HPI HPI: Room 4 The patient is a 59-year-old male presenting with chief complaint of right lower extremity pain and swelling. The patient states for the past 3 days he has noticed pain and swelling of his right lower extremity. Patient states at times his right foot falls asleep secondary to swelling. Patient denies any trauma to the leg. Patient denies any recent flights or long car trips. Patient denies chest pain or shortness of breath. Patient gets his pain is scored 8/10 Location: [See above] Duration: [See above] Quality: [See above] Severity: [See above] Modifying factors: [see above] Context: [see above] Mode of transportation: [not driving] ED Past Medical Hx - Past Medical History Previous Medical History?: Yes Hx Hypertension: Yes Hx Diabetes: Yes Hx GERD: Yes Hx Renal Disease: Yes (ESRD HD M,W,F) Additional medical history: Legally Blind, herpes I and II,open sores all over body - Surgical History Past Surgical History?: Yes Additional Surgical History: AV Fistula IN Left ARM for Dialysis - Family History Family history: no significant - Social History Smoking Status: Never Smoker Substance Use Type: Alcohol (rarely), Marijuana - Medications Home Medications: Home Medications Medication Instructions Recorded Confirmed Last Taken Type NIFEdipine [Nifedipine ER] 60 mg PO DAILY 08/22/17 02/27/19 Unknown History Loratadine 10 mg PO DAILY 08/09/18 02/27/19 Unknown History Minoxidil [Loniten] 5 mg PO DAILY 08/09/18 02/27/19 Unknown History Sevelamer Carbonate [Renvela] 800 mg PO DAILY 08/09/18 02/27/19 Unknown History Carvedilol [Coreg] 12.5 mg PO BID #60 tablet 08/12/18 02/27/19 Unknown Rx hydrOXYzine HCL [Atarax] 25 mg PO BID PRN 10 Days #12 tablet 03/01/19 Unknown Rx HYDROcodone/APAP 5-325 [[place] 1 - 2 each PO Q6HR PRN #10 tablet 03/20/19 Unknown Rx 5/325] ED Review of Systems ROS: Stated complaint: RIGHT LEG/FOOT PAIN/SWELLING Other details as noted in HPI Constitutional: denies: fever ENT: denies: throat pain Respiratory: denies: shortness of breath Cardiovascular: denies: chest pain Endocrine: no symptoms reported Gastrointestinal: denies: abdominal pain Genitourinary: denies: testicular pain Musculoskeletal: denies: back pain Neurological: denies: headache Physical Exam - Physical Exam Vital Signs: Vital Signs 03/19/19 03/19/19 21:00 22:53 Temperature 98.6 F 98 F Pulse Rate 80 76 Respiratory 20 12 Rate Blood Pressure 162/73 Blood Pressure 200/93 [Right] O2 Sat by Pulse 90 99 Oximetry Physical Exam: GENERAL: The patient is well-developed well-nourished male lying on stretcher not appearing to be in acute distress. [] HEENT: Normocephalic. Atraumatic. Blind NECK: Trachea midline CHEST/LUNGS: Clear to auscultation. There is no respiratory distress noted. HEART/CARDIOVASCULAR: Regular. There is no tachycardia. There is no gallop rub or murmur. 2+ right DP ABDOMEN: Abdomen is soft, nontender. Patient has normal bowel sounds. There is no abdominal distention. SKIN: There is no rash. There is 1+ bilateral lower extremity pitting edema. There is no diaphoresis. NEURO: The patient is awake, alert, and oriented. The patient is cooperative. The patient has normal speech MUSCULOSKELETAL: There is tenderness to palpation of the popliteal fossa on the right. No cords felt. There is no evidence of acute injury. ED Course Vital Signs 03/19/19 03/19/19 21:00 22:53 Temperature 98.6 F 98 F Pulse Rate 80 76 Respiratory 20 12 Rate Blood Pressure 162/73 Blood Pressure 200/93 [Right] O2 Sat by Pulse 90 99 Oximetry ED Medical Decision Making - Lab Data Result diagrams: 03/19/19 23:28 03/19/19 23:28 Laboratory Tests 03/19/19 03/19/19 03/19/19 21: 23:28 23:28 WBC 5.9 RBC 3.80 Hgb 11.1 L Hct 34.8 L MCV 91 MCH 29 MCHC 32 RDW 20.6 H Plt Count 130 L Eos % (Auto) [employer] Payable Specialist PT 16.2 H INR 1.34 H APTT 36.9 H D-Dimer 7845.87 H Sodium 139 Potassium 3.9 Chloride 93.9 L Carbon Dioxide 32 H Anion Gap 17 BUN 29 H Creatinine 6.1 H Estimated GFR 11 BUN/Creatinine Ratio 5 Glucose 88 Calcium 9.7 - Radiology Data Radiology results: image reviewed (right tib-fib x-ray) interpreted by me: Right tib-fib x-ray-no acute fracture seen - Differential Diagnosis DVT, peripheral edema, occult fracture Critical care attestation.: If time is entered above; I have spent that time in minutes in the direct care of this critically ill patient, excluding procedure time. ED Disposition Clinical Impression: Right leg pain Disposition: TO HOME OR SELFCARE Is pt being admited?: No Does the pt Need Aspirin: No Condition: Stable Additional Instructions: You are to return to the emergency department tomorrow to have an ultrasound performed to evaluate you for DVT. Return to the emergency department immediately should you develop shortness of breath or chest pain, worsening symptoms, fever, inability to tolerate food or liquid or any other concerns. Prescriptions: HYDROcodone/APAP 5-325 [[place] 5/325] 1 - 2 each PO Q6HR PRN #10 tablet PRN Reason: Pain Referrals: STEFANI MONTENEGRO MD [Primary Care Provider] - 3-5 Days Time of Disposition: 00:17
[2019-03-19 23:41] LABS: Hematocrit 34.8 % (35.5-45.6); Hemoglobin 11.1 gm/dl (11.8-15.2); Mean Corpuscular HGB Conc 32 % (32-34); Mean Corpuscular Volume 91 fl (84-94); Platelet Count 130 K/mm3 (140-440)
[2019-03-19 23:46] LABS: Red Cell Distribution Width 20.6 % (13.2-15.2)
[2019-03-20 00:04] LABS: Calcium 9.7 mg/dL (8.4-10.2)
[2019-03-20] MEDS ORDERED: LOVENOX SUB-Q ONE (00:13)
--- NOTE | 2019-03-20 00:14 | XRay Report ---
Right leg-4 views INDICATION: pain and swelling. Lower leg pain and swelling for the past 3 days with no reported inj ury COMPARISON: None. IMPRESSION: No acute osseous abnormality or malalignment. Mild generalized soft tissue swelling abou t the entire leg. Extensive Monckeberg-type vascular calcifications are present. 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 Signer Name: Fabrice Reyes MD Signed: 03/20/2019 12:09 AM Workstation Name: [id number]
[2019-03-20] MEDS ORDERED: CATAPRES ONE (00:26)
[2019-03-20] MEDS ORDERED: CATAPRES PO ONE (00:27)
[2019-03-20 02:25] VITALS: BP 183/83
[2019-03-20 03:52] LABS: Total Cells Counted 100
[2019-03-20 03:53] LABS: Anisocytosis 1+; Platelet Estimate Consistent w Auto; Poikilocytosis 1+
== END 2019-03-20 02:24 | disposition home or self-care (01) ==
LOC: ED 20:55
DX: M79.671 Pain in right foot (principal); K21.9 Gastro-esophageal reflux disease without esophagitis; F12.10 Cannabis abuse, uncomplicated; I12.0 Hypertensive chronic kidney disease with stage 5 chronic kidney disease or end stage renal disease; E11.22 Type 2 diabetes mellitus with diabetic chronic kidney disease; N18.6 End stage renal disease; Z99.2 Dependence on renal dialysis; Z79.899 Other long term (current) drug therapy; Z98.890 Other specified postprocedural states; Z91.040 Latex allergy status
CPT/HCPCS: 36415; 73590; 80048; 83880; 85007; 85025; 85379; 85610; 85730; 93971; 96372; 99284; J1650

== ENCOUNTER 2019-04-05 04:31 | Emergency (ER) | payer MEDICARE ==
[2019-04-05] MEDS ORDERED: NORVASC PO ONE (06:48)
--- NOTE | 2019-04-05 06:48 | Emergency Department Report ---
HPI - General Chief Complaint: High BP Time Seen by Provider: 04/05/19 06:13 - HPI HPI: 59-year-old -[place]inese male presents to the emergency department via EMS from home with a complaint of leading from his left upper extremity dialysis fistula. He gets dialysis on Thursday/Thursday/Thursday and did have a full session of dialysis. There is some mild bleeding from the site after he completed his dialysis. About 4 AM this morning, the patient took off the bandage that was previously placed and says "it looked like a [place] fountain." He also presents with very elevated blood pressure but says he did not take his blood pressure medication yet this morning. His bilingual teacher aide is Dr. Estrella Martinez. That fistula has been there for "a long time." ED Past Medical Hx - Past Medical History Hx Hypertension: Yes Hx Congestive Heart Failure: No Hx Diabetes: Yes Hx GERD: Yes Hx Renal Disease: Yes (ESRD HD M,W,F) Hx Seizures: Yes Hx Asthma: No Hx COPD: No Hx HIV: Yes Additional medical history: Legally Blind, herpes I and II,open sores all over body - Surgical History Additional Surgical History: AV Fistula IN Left ARM for Dialysis - Social History Smoking Status: Never Smoker - Medications Home Medications: Home Medications Medication Instructions Recorded Confirmed Last Taken Type NIFEdipine [Nifedipine ER] 60 mg PO DAILY 08/22/17 02/27/19 Unknown History Loratadine 10 mg PO DAILY 08/09/18 02/27/19 Unknown History Minoxidil [Loniten] 5 mg PO DAILY 08/09/18 02/27/19 Unknown History Sevelamer Carbonate [Renvela] 800 mg PO DAILY 08/09/18 02/27/19 Unknown History Carvedilol [Coreg] 12.5 mg PO BID #60 tablet 08/12/18 02/27/19 Unknown Rx hydrOXYzine HCL [Atarax] 25 mg PO BID PRN 10 Days #12 tablet 03/01/19 Unknown Rx HYDROcodone/APAP 5-325 [[place] 1 - 2 each PO Q6HR PRN #10 tablet 03/20/19 Unknown Rx 5/325] ED Review of Systems ROS: Stated complaint: BLEEDING FROM PORT Other details as noted in HPI Comment: All other systems reviewed and negative Constitutional: denies: chills, fever Eyes: denies: eye pain, vision change ENT: denies: ear pain, throat pain Respiratory: denies: cough, shortness of breath Cardiovascular: denies: chest pain, palpitations Gastrointestinal: denies: abdominal pain, vomiting Genitourinary: denies: dysuria, discharge Musculoskeletal: denies: back pain, arthralgia Skin: denies: rash, lesions Neurological: denies: headache, weakness Physical Exam - Physical Exam Vital Signs: Vital Signs 04/05/19 04/05/19 04/05/19 04:43 04:50 06:10 Temperature 97.0 F L 98.5 F Pulse Rate 77 76 75 Respiratory 18 18 18 Rate Blood Pressure 229/109 Blood Pressure 229/109 212/107 [Right] O2 Sat by Pulse 96 100 95 Oximetry Physical Exam: GENERAL: The patient is well-developed well-nourished. HENT: Normocephalic. Atraumatic. Patient has moist mucous membranes. EYES: Extraocular motions are intact. NECK: Supple. Trachea is midline. CHEST/LUNGS: Clear to auscultation. There is no respiratory distress noted. HEART/CARDIOVASCULAR: Regular. There is no tachycardia. There is no murmur. ABDOMEN: Abdomen is soft, nontender. Patient has normal bowel sounds. There is no abdominal distention. SKIN: Skin is warm and dry. NEURO: The patient is awake, alert, and oriented. The patient is cooperative. Normal speech. MUSCULOSKELETAL: There is no tenderness or deformity. There is no evidence of acute injury. Left forearm dialysis fistula that appears patent. No current signs of bleeding or hemorrhage. ED Course Vital Signs 04/05/19 04/05/19 04/05/19 04:43 04:50 06:10 Temperature 97.0 F L 98.5 F Pulse Rate 77 76 75 Respiratory 18 18 18 Rate Blood Pressure 229/109 Blood Pressure 229/109 212/107 [Right] O2 Sat by Pulse 96 100 95 Oximetry - Consultations Consultation #1: 04/05/19 12:49 I spoke to the bilingual teacher aide refrigeration lead for Dr Martinez, Dr Virk, who says that the patient can be discharged home if the bleeding has stopped and he is otherwise stable. ED Medical Decision Making - Lab Data Result diagrams: 04/05/19 07:04 04/05/19 07:04 - Medical Decision Making This patient presented after he woke up with bleeding from his left forearm dialysis fistula. A pressure dressing was placed by EMS and the patient has not had any further bleeding since his presentation to the emergency department. We left the pressure dressing off for over an hour and there was no return of any bleeding. Labs are mostly unremarkable except for his renal insufficiency but he has end-stage renal disease on hemodialysis. No potassium or electrolyte abnormalities. He has no complaints of any chest pain, shortness of breath, edema. Spoke with nephrology who agrees that the patient can be safely discharged home. The patient has been instructed to return to the emergency department immediately if the bleeding returns or with any acute distress. The patient did present with elevated blood pressure but he is dialysis dependent and did not take his blood pressure medication yet this morning. He was given some antihypertensive medication with some improvement. He has been instructed to go home and take his blood pressure medication, avoid foods that are high in salt and caffeinated products and to keep a blood pressure log. - Differential Diagnosis fistula pseudoaneurysm, laceration, clot Critical Care Time: No Critical care attestation.: If time is entered above; I have spent that time in minutes in the direct care of this critically ill patient, excluding procedure time. ED Disposition Clinical Impression: End stage renal disease on dialysis Bleeding from dialysis shunt Qualifiers: Encounter type: initial encounter Qualified Code(s): T82.838A - Hemorrhage due to vascular prosthetic devices, implants and grafts, initial encounter Hypertension Qualifiers: Hypertension type: essential hypertension Qualified Code(s): I10 - Essential (primary) hypertension Disposition: DC-01 TO HOME OR SELFCARE Is pt being admited?: No Condition: Stable Instructions: Chronic Kidney Disease (ED), Hypertension (ED) Additional Instructions: Please follow-up with your bilingual teacher aide, Dr. Martinez, as soon as possible. Continue with your normal dialysis regiment. Return to the emergency department immediately with any return of bleeding from her dialysis fistula, or with any acute distress. Take your blood pressure medications. Try and stay away from foods that are high in salt and caffeinated products. Keep a blood pressure log. Referrals: DREW MARTINEZ MD [Referring] - [facility] Time of Disposition: 09:09
[2019-04-05 07:50] LABS: Calcium 9.2 mg/dL (8.4-10.2); Hematocrit 34.2 % (35.5-45.6); Hemoglobin 11.4 gm/dl (11.8-15.2); Mean Corpuscular HGB Conc 33 % (32-34); Mean Corpuscular Volume 93 fl (84-94); Platelet Count 129 K/mm3 (140-440); Red Blood Count 3.67 M/mm3 (3.65-5.03)
[2019-04-05 07:51] LABS: Red Cell Distribution Width 20.4 % (13.2-15.2)
[2019-04-05] MEDS ORDERED: APRESOLINE IV ONE (07:58)
[2019-04-05 09:12] VITALS: BP 198/88
[2019-04-05 11:41] LABS: Anisocytosis 1+; Basophils % (Manual) 0 % (0.0-1.8); Total Cells Counted 100
[2019-04-05 11:42] LABS: Ovalocytes Few; Platelet Estimate Consistent w Auto; Target Cells Few
== END 2019-04-05 09:37 | disposition home or self-care (01) ==
LOC: ED 04:31
DX: T82.838A Hemorrhage due to vascular prosthetic devices, implants and grafts, initial encounter (principal); I12.0 Hypertensive chronic kidney disease with stage 5 chronic kidney disease or end stage renal disease; E11.22 Type 2 diabetes mellitus with diabetic chronic kidney disease; N18.6 End stage renal disease; Z99.2 Dependence on renal dialysis; K21.9 Gastro-esophageal reflux disease without esophagitis; Z91.040 Latex allergy status; Z21 Asymptomatic human immunodeficiency virus [HIV] infection status; Z79.899 Other long term (current) drug therapy
CPT/HCPCS: 36415; 80048; 85007; 85025; 96374; 99284; J0360

== ENCOUNTER 2019-05-08 20:28 | Emergency (ER) | payer MEDICARE ==
[2019-05-08] MEDS ORDERED: hydrALAZINE 20 MG/1 ML INJ IV ONE (22:45)
--- NOTE | 2019-05-08 23:36 | Emergency Department Report ---
ED Extremity Problem HPI - General Chief complaint: Extremity Problem,Nontraumatic Stated complaint: BLEEDING FROM PORT Time Seen by Provider: 05/08/19 20:39 Source: patient, EMS Mode of arrival: Ambulatory Limitations: No Limitations - History of Present Illness Initial comments: Patient is a 59-year-old -[place] male with past medical history of end- stage renal disease who states that several hours before arrival his AV graft on his left upper extremity started bleeding. Patient's last dialysis was 2 days ago. He is due for dialysis tomorrow. Patient states he woke up to his bed being soaked with blood. Patient raptors on the Emergency department. He is denying chest pain shortness of breath fevers chills nausea vomiting. Severity scale (0 -10): 0 - Related Data Home Medications Medication Instructions Recorded Confirmed Last Taken NIFEdipine [Nifedipine ER] 60 mg PO DAILY 08/22/17 02/27/19 Unknown Loratadine 10 mg PO DAILY 08/09/18 02/27/19 Unknown Minoxidil [Loniten] 5 mg PO DAILY 08/09/18 02/27/19 Unknown Sevelamer Carbonate [Renvela] 800 mg PO DAILY 08/09/18 02/27/19 Unknown Previous Rx's Medication Instructions Recorded Last Taken Type Carvedilol [Coreg] 12.5 mg PO BID #60 tablet 08/12/18 Unknown Rx hydrOXYzine HCL [Atarax] 25 mg PO BID PRN 10 Days #12 tablet 03/01/19 Unknown Rx HYDROcodone/APAP 5-325 [[place] 1 - 2 each PO Q6HR PRN #10 tablet 03/20/19 Unknown Rx 5/325] Allergies Allergy/AdvReac Type Severity Reaction Status Date / Time latex Allergy Hives Verified 06/15/18 13:05 ED Review of Systems ROS: Stated complaint: BLEEDING FROM PORT Other details as noted in HPI Comment: All other systems reviewed and negative ED Past Medical Hx - Past Medical History Previous Medical History?: Yes Hx Hypertension: Yes Hx Congestive Heart Failure: No Hx Diabetes: Yes Hx GERD: Yes Hx Renal Disease: Yes (ESRD HD M,W,F) Hx Seizures: Yes Hx Asthma: No Hx COPD: No Hx HIV: Yes Additional medical history: Legally Blind, herpes I and II,open sores all over body - Surgical History Past Surgical History?: Yes Additional Surgical History: AV Fistula IN Left ARM for Dialysis - Social History Smoking Status: Never Smoker - Medications Home Medications: Home Medications Medication Instructions Recorded Confirmed Last Taken Type NIFEdipine [Nifedipine ER] 60 mg PO DAILY 08/22/17 02/27/19 Unknown History Loratadine 10 mg PO DAILY 08/09/18 02/27/19 Unknown History Minoxidil [Loniten] 5 mg PO DAILY 08/09/18 02/27/19 Unknown History Sevelamer Carbonate [Renvela] 800 mg PO DAILY 08/09/18 02/27/19 Unknown History Carvedilol [Coreg] 12.5 mg PO BID #60 tablet 08/12/18 02/27/19 Unknown Rx hydrOXYzine HCL [Atarax] 25 mg PO BID PRN 10 Days #12 tablet 03/01/19 Unknown Rx HYDROcodone/APAP 5-325 [[place] 1 - 2 each PO Q6HR PRN #10 tablet 03/20/19 Unknown Rx 5/325] ED Physical Exam - General Limitations: No Limitations General appearance: alert, in no apparent distress - Head Head exam: Present: atraumatic, normocephalic - Eye Eye exam: Present: normal appearance - ENT ENT exam: Present: mucous membranes moist - Neck Neck exam: Present: normal inspection - Respiratory Respiratory exam: Present: normal lung sounds bilaterally. Absent: respiratory distress, wheezes, rales, rhonchi - Cardiovascular Cardiovascular Exam: Present: regular rate, normal rhythm. Absent: systolic murmur, diastolic murmur, rubs, gallop - GI/Abdominal GI/Abdominal exam: Present: soft, normal bowel sounds - Rectal Rectal exam: Present: deferred - Extremities Exam Extremities exam: Present: normal inspection - Back Exam Back exam: Present: normal inspection - Neurological Exam Neurological exam: Present: alert, oriented X3 - Psychiatric Psychiatric exam: Present: normal affect, normal mood - Skin Skin exam: Present: warm, dry, intact, normal color, other (patient with AV graft left upper extremity with a palpable thrill. Patient has pinpoint area of bleeding present.). Absent: rash ED Course Vital Signs 05/08/19 05/08/19 05/08/19 20:49 22:00 23:00 Temperature 98.4 F Pulse Rate 73 71 Respiratory 20 20 20 Rate Blood Pressure 219/97 Blood Pressure 221/105 [Right] O2 Sat by Pulse 94 98 98 Oximetry 05/08/19 23:01 Temperature Pulse Rate 71 Respiratory Rate Blood Pressure 221/105 Blood Pressure [Right] O2 Sat by Pulse Oximetry ED Medical Decision Making - Medical Decision Making We put a pressure dressing on the patient for an hour to see if this will slow the bleeding. Patient's bleeding has continued. Room to use hemostat sponge on the area and watch the patient again for sometimes shoot the bleeding has stopped and it has. Patient is no longer soaking through a bandage. She'll be discharged home with follow-up with dialysis tomorrow. BP was elevated and he was given hydralazine and it is impoving. no signs of end orfgan damage present Critical care attestation.: If time is entered above; I have spent that time in minutes in the direct care of this critically ill patient, excluding procedure time. ED Disposition Clinical Impression: Hypertensive urgency AV graft malfunction Qualifiers: Encounter type: initial encounter Qualified Code(s): T82.590A - Other mechanical complication of surgically created arteriovenous fistula, initial encounter Disposition: -01 TO HOME OR SELFCARE Is pt being admited?: No Does the pt Need Aspirin: No Condition: Stable Instructions: Hypertension (ED) Referrals: PRIMARY CARE, [Primary Care Provider] - 3-5 Days Time of Disposition: 23:37
[2019-05-09] MEDS ORDERED: SILVER NITRATE APPLICATOR 1 EA TP ONE ×2 (00:44→02:41)
[2019-05-09 02:41] VITALS: BP 189/95
== END 2019-05-09 02:30 | disposition home or self-care (01) ==
LOC: ED 20:28
DX: T82.590A Other mechanical complication of surgically created arteriovenous fistula, initial encounter (principal); I16.0 Hypertensive urgency; X58.XXXA Exposure to other specified factors, initial encounter
CPT/HCPCS: 99283; J0360

== ENCOUNTER 2020-02-04 18:20 | Emergency (ER) | payer MEDICARE ==
[2020-02-04 18:57] LABS: Hemoglobin 8.8 gm/dl (11.8-15.2); Red Blood Count 3.11 M/mm3 (3.65-5.03)
[2020-02-04 18:58] LABS: Hematocrit 28.1 % (35.5-45.6); Mean Corpuscular HGB Conc 31 % (32-34); Mean Corpuscular Volume 90 fl (84-94); Platelet Count 195 K/mm3 (140-440); Red Cell Distribution Width 17.7 % (13.2-15.2)
[2020-02-04 19:15] LABS: Calcium 8.1 mg/dL (8.4-10.2)
--- NOTE | 2020-02-04 19:35 | Emergency Department Report ---
HPI - General Chief Complaint: Altered Mental Status Time Seen by Provider: 02/04/20 19:19 - HPI HPI: Room 23 The patient is a 59-year-old male present with a chief complaint of altered mental status. The patient states he remembers eating fruit and taking his pain medication (he believes it was hydrocodone but is not certain) at approximate 14: 00. Patient states he got into bed and his next memory is waking up in the ambulance with EMS. The patient's girlfriend reportedly was unable to arouse him. Patient states he now feels okay. Patient denies having any complaints. Patient specifically denies chest pain, shortness of breath, headache nausea or vomiting. Patient denies suicidal ideation stating he only took 2 of his pain pills for his hip pain. ED Past Medical Hx - Past Medical History Previous Medical History?: Yes Hx Hypertension: Yes Hx Diabetes: Yes Hx GERD: Yes Hx Renal Disease: Yes (ESRD HD M,W,F) Hx Seizures: Yes Hx HIV: Yes Additional medical history: Legally Blind, herpes I and II,open sores all over body - Surgical History Past Surgical History?: Yes Additional Surgical History: AV Fistula IN Left ARM for Dialysis - Family History Family history: no significant - Social History Smoking Status: Never Smoker Substance Use Type: None (Denies illicit drug use) - Medications Home Medications: Home Medications Medication Instructions Recorded Confirmed Last Taken Type NIFEdipine [Nifedipine ER] 60 mg PO DAILY 08/22/17 12/07/19 Unknown History Loratadine 10 mg PO DAILY 08/09/18 12/07/19 Unknown History Sevelamer Carbonate [Renvela] 800 mg PO DAILY 08/09/18 12/07/19 Unknown History minoxidiL [Loniten] 5 mg PO DAILY 08/09/18 12/07/19 Unknown History carvediloL [Coreg] 12.5 mg PO BID #60 tablet 08/12/18 12/07/19 Unknown Rx hydrOXYzine HCL [Atarax] 25 mg PO BID PRN 10 Days #12 tablet 03/01/19 12/07/19 Unknown Rx HYDROcodone/APAP 5-325 [[place] 1 - 2 each PO Q6HR PRN #10 tablet 03/20/19 12/07/19 Unknown Rx 5/325] Acyclovir [Zovirax Tab] 400 mg PO BID 12/07/19 12/07/19 Unknown History Bimatoprost [Lumigan 0.01%] 1 drop OP QPM 12/07/19 12/07/19 Unknown History Brimonidine Tartrate/Timolol 5 ml OP BID 12/07/19 12/07/19 Unknown History [Combigan 0.2%-0.5% Eye Drops] Vit B Comp No.3/Folic/C/Biotin 1 each PO DAILY 12/07/19 12/07/19 Unknown History [Rochelle-Chelsi Rx Tablet] ED Review of Systems ROS: Stated complaint: AMS Other details as noted in HPI Constitutional: no symptoms reported Eyes: denies: eye pain ENT: denies: throat pain Respiratory: no symptoms reported Cardiovascular: denies: chest pain Endocrine: no symptoms reported Gastrointestinal: denies: abdominal pain, nausea, vomiting Genitourinary: denies: testicular pain Musculoskeletal: denies: back pain Neurological: other (Altered mental status). denies: headache Physical Exam - Physical Exam Physical Exam: GENERAL: The patient is well-developed well-nourished male lying on stretcher not appearing to be in acute distress. [] HEENT: Normocephalic. Atraumatic. Extraocular motions are intact. Patient has moist mucous membranes. Blind NECK: Supple. Trachea midline CHEST/LUNGS: Clear to auscultation. There is no respiratory distress noted. HEART/CARDIOVASCULAR: Regular. There is no tachycardia. There is no gallop rub or murmur. ABDOMEN: Abdomen is soft, nontender. Patient has normal bowel sounds. There is no abdominal distention. SKIN: There is no rash. There is no edema. There is no diaphoresis. NEURO: The patient is awake, alert, and oriented. The patient is cooperative. The patient has no focal neurologic deficits. The patient has normal speech. Cranial nerves III through XII grossly intact MUSCULOSKELETAL: There is no evidence of acute injury. ED Course - Reevaluation(s) Reevaluation #1: 02/04/20 22:56 Patient remains asymptomatic and states she is ready to go home. ED Medical Decision Making - Lab Data Result diagrams: 02/04/20 18:41 02/04/20 18:41 Laboratory Tests 02/04/20 02/04/20 02/04/20 18:41 18:41 19:33 WBC 7.7 RBC 3.11 L Hgb 8.8 L Hct 28.1 L MCV 90 MCH 28 MCHC 31 L RDW 17.7 H Plt Count 195 Eos % (Auto) Cooker Process Cheese Baso % (Auto) Cooker Process Cheese Add Manual Diff Complete Total Counted 100 Seg Neuts % (Manual) 68.0 Band Neutrophils % 0 Lymphocytes % (Manual) 8.0 L Reactive Lymphs % (Man) 0 Monocytes % (Manual) 2.0 Eosinophils % (Manual) 21.0 H Basophils % (Manual) 1.0 Metamyelocytes % 0 Myelocytes % 0 Promyelocytes % 0 Blast Cells % 0 Nucleated RBC % Not Reportable Seg Neutrophils # Man 5.2 Band Neutrophils # 0.0 Lymphocytes # (Manual) 0.6 L Abs React Lymphs (Man) 0.0 Monocytes # (Manual) 0.2 Eosinophils # (Manual) 1.6 H Basophils # (Manual) 0.1 Metamyelocytes # 0.0 Myelocytes # 0.0 Promyelocytes # 0.0 Blast Cells # 0.0 WBC Morphology Not Reportable Hypersegmented Neuts Not Reportable Hyposegmented Neuts Not Reportable Hypogranular Neuts Not Reportable Smudge Cells Not Reportable Toxic Granulation Not Reportable Toxic Vacuolation Not Reportable Dohle Bodies Not Reportable Pelger-Huet Anomaly Not Reportable Destin Rods Not Reportable Platelet Estimate Consistent w auto Clumped Platelets Not Reportable Plt Clumps, EDTA Not Reportable Large Platelets Not Reportable Giant Platelets Not Reportable Platelet Satelliting Not Reportable Plt Morphology Comment Not Reportable RBC Morphology Not Reportable Dimorphic RBCs Not Reportable Polychromasia Not Reportable Hypochromasia Few Poikilocytosis Not Reportable Anisocytosis 1+ Microcytosis 1+ Macrocytosis Few Spherocytes Not Reportable Pappenheimer Bodies Not Reportable Sickle Cells Not Reportable Target Cells Not Reportable Tear Drop Cells Not Reportable Ovalocytes Not Reportable Helmet Cells Not Reportable [place] Bodies Not Reportable [place] Rings Not Reportable [place] Cells Not Reportable Bite Cells Not Reportable Crenated Cell Not Reportable Elliptocytes Not Reportable Acanthocytes (Spur) Not Reportable Rouleaux Not Reportable Hemoglobin C Crystals Not Reportable Schistocytes Rare Malaria parasites Not Reportable Kam Bodies Not Reportable Hem Pathologist Commnt No Sodium 133 L Potassium 3.3 L Chloride 91.0 L Carbon Dioxide 28 Anion Gap 17 BUN 20 Creatinine 3.8 H Estimated GFR 20 BUN/Creatinine Ratio 5 Glucose 78 POC Glucose Calcium 8.1 L Ammonia 36.0 Total Creatine Kinase CK-MB (CK-2) CK-MB (CK-2) Rel Index Troponin T Triglycerides Cholesterol LDL Cholesterol Direct HDL Cholesterol Cholesterol/HDL Ratio Salicylates Acetaminophen Plasma/Serum Alcohol 02/04/20 02/04/20 02/04/20 19:33 19:33 19:33 WBC RBC Hgb Hct MCV MCH MCHC RDW Plt Count Eos % (Auto) Baso % (Auto) Add Manual Diff Total Counted Seg Neuts % (Manual) Band Neutrophils % Lymphocytes % (Manual) Reactive Lymphs % (Man) Monocytes % (Manual) Eosinophils % (Manual) Basophils % (Manual) Metamyelocytes % Myelocytes % Promyelocytes % Blast Cells % Nucleated RBC % Seg Neutrophils # Man Band Neutrophils # Lymphocytes # (Manual) Abs React Lymphs (Man) Monocytes # (Manual) Eosinophils # (Manual) Basophils # (Manual) Metamyelocytes # Myelocytes # Promyelocytes # Blast Cells # WBC Morphology Hypersegmented Neuts Hyposegmented Neuts Hypogranular Neuts Smudge Cells Toxic Granulation Toxic Vacuolation Dohle Bodies Pelger-Huet Anomaly [place] Rods Platelet Estimate Clumped Platelets Plt Clumps, EDTA Large Platelets Giant Platelets Platelet Satelliting Plt Morphology Comment RBC Morphology Dimorphic RBCs Polychromasia Hypochromasia Poikilocytosis Anisocytosis Microcytosis Macrocytosis Spherocytes Pappenheimer Bodies Sickle Cells Target Cells Tear Drop Cells Ovalocytes Helmet Cells Calle-[place] Bodies [place] Rings [place] Cells Bite Cells Crenated Cell Elliptocytes Acanthocytes (Spur) Rouleaux Hemoglobin C Crystals Schistocytes Malaria parasites Kam Bodies Hem Pathologist Commnt Sodium Potassium Chloride Carbon Dioxide Anion Gap BUN Creatinine Estimated GFR BUN/Creatinine Ratio Glucose POC Glucose Calcium Ammonia Total Creatine Kinase 38 L CK-MB (CK-2) 1.0 CK-MB (CK-2) Rel Index 2.6 Troponin T 0.364 H* Triglycerides 108 Cholesterol 84 LDL Cholesterol Direct 30 L HDL Cholesterol 35 L Cholesterol/HDL Ratio 2.40 Salicylates < 0.3 L Acetaminophen < 5.0 L Plasma/Serum Alcohol 02/04/20 02/04/20 19:33 20:02 WBC RBC Hgb Hct MCV MCH MCHC RDW Plt Count Eos % (Auto) Baso % (Auto) Add Manual Diff Total Counted Seg Neuts % (Manual) Band Neutrophils % Lymphocytes % (Manual) Reactive Lymphs % (Man) Monocytes % (Manual) Eosinophils % (Manual) Basophils % (Manual) Metamyelocytes % Myelocytes % Promyelocytes % Blast Cells % Nucleated RBC % Seg Neutrophils # Man Band Neutrophils # Lymphocytes # (Manual) Abs React Lymphs (Man) Monocytes # (Manual) Eosinophils # (Manual) Basophils # (Manual) Metamyelocytes # Myelocytes # Promyelocytes # Blast Cells # WBC Morphology Hypersegmented Neuts Hyposegmented Neuts Hypogranular Neuts Smudge Cells Toxic Granulation Toxic Vacuolation Dohle Bodies Pelger-Huet Anomaly [place] Rods Platelet Estimate Clumped Platelets Plt Clumps, EDTA Large Platelets Giant Platelets Platelet Satelliting Plt Morphology Comment RBC Morphology Dimorphic RBCs Polychromasia Hypochromasia Poikilocytosis Anisocytosis Microcytosis Macrocytosis Spherocytes Pappenheimer Bodies Sickle Cells Target Cells Tear Drop Cells Ovalocytes Helmet Cells Calle-[place] Bodies [place] Rings [place] Cells Bite Cells Crenated Cell Elliptocytes Acanthocytes (Spur) Rouleaux Hemoglobin C Crystals Schistocytes Malaria parasites Kam Bodies Hem Pathologist Commnt Sodium Potassium Chloride Carbon Dioxide Anion Gap BUN Creatinine Estimated GFR BUN/Creatinine Ratio Glucose POC Glucose 79 Calcium Ammonia Total Creatine Kinase CK-MB (CK-2) CK-MB (CK-2) Rel Index Troponin T Triglycerides Cholesterol LDL Cholesterol Direct HDL Cholesterol Cholesterol/HDL Ratio Salicylates Acetaminophen Plasma/Serum Alcohol < 0.01 - EKG Data -: EKG Interpreted by Ia EKG shows normal: sinus rhythm Rate: normal - EKG Data When compared to previous EKG there are: previous EKG unavailable Interpretation: other (No ischemic changes seen) - Radiology Data Radiology results: report reviewed (CT head), image reviewed (CT head) [facility] [address] [place] [address] Cat Scan Report Signed Patient: MAURI MARROQUIN MR#: [id number] : 1960 Acct:[id number] Age/Sex: 59 / M ADM Date: 02/04/20 Loc: ED Attending Dr: Ordering Physician: MARY SANTIAGO MD Date of Service: 06/27/20 Procedure(s): CT head/brain wo con Accession Number(s): [id number] cc: MARY SANTIAGO MD CT head/brain wo con INDICATION / CLINICAL INFORMATION: Altered mental status. TECHNIQUE: Axial CT imaging of the brain was obtained without contrast. Coronal and sagittal reformatted imaging obtained and reviewed. All CT scans at this location are performed using CT dose reduction for ALARA by means of automated exposure control. COMPARISON: None available. FINDINGS: No intracranial hemorrhage, mass, or midline shift is noted. No extra-axial fluid collection or suggestion of acute territorial infarction. Ventricular system and basilar cisterns are unremarkab le. There is prominent cerebral/cerebellar atrophy. Mild microvascular angiopathic changes are noted. Intracranial portions of the internal carotid arteries show dense calcification. Visualized paranasal sinuses are grossly clear. There is partial opacification of multiple mastoid air cells bilaterally. IMPRESSION: 1. Bilateral mastoiditis. 2. Age-related changes. 3. No additional abnormality. Signer Name: Saida Lloyd MD Signed: 02/04/2020 8:50 PM Workstation Name: [id number] Transcribed By: Dictated By: Saida Lloyd MD Electronically Authenticated By: Saida Lloyd MD Signed Date/Time: 02/04/202049 DD/ 46 TD/TT: - Differential Diagnosis Overmedication, ICH, hepatic encephalopathy Critical care attestation.: If time is entered above; I have spent that time in minutes in the direct care of this critically ill patient, excluding procedure time. ED Disposition Clinical Impression: Sedated due to medication Disposition: DC-01 TO HOME OR SELFCARE Is pt being admited?: No Does the pt Need Aspirin: No Condition: Stable Additional Instructions: Return to the emergency department should you develop worsening symptoms, inability to tolerate food or liquids, high fever or any other concerns Referrals: KENTRELL VALLEJO MD [Primary Care Provider] - 3-5 Days Time of Disposition: 22:57
[2020-02-04 19:41] LABS: Anisocytosis 1+; Total Cells Counted 100
[2020-02-04 19:42] LABS: Hypochromasia Few; Macrocytosis Few; Platelet Estimate Consistent w Auto; Schistocytes Rare
[2020-02-04 20:20] LABS: Chol/HDL Ratio 2.4 %
--- NOTE | 2020-02-04 20:55 | Cat Scan Report ---
CT head/brain wo con INDICATION / CLINICAL INFORMATION: Altered mental status. TECHNIQUE: Axial CT imaging of the brain was obtained without contrast. Coronal and sagittal reformatted imaging obtained and reviewed. All CT scans at this location are performed using CT dose reduction for ALAR A by means of automated exposure control. COMPARISON: None available. FINDINGS: No intracranial hemorrhage, mass, or midline shift is noted. No extra-axial fluid collection or sugge stion of acute territorial infarction. Ventricular system and basilar cisterns are unremarkable. Ther e is prominent cerebral/cerebellar atrophy. Mild microvascular angiopathic changes are noted. Intracr anial portions of the internal carotid arteries show dense calcification. Visualized paranasal sinuses are grossly clear. There is partial opacification of multiple mastoid ai r cells bilaterally. IMPRESSION: 1. Bilateral mastoiditis. 2. Age-related changes. 3. No additional abnormality. Signer Name: Saida Lloyd MD Signed: 02/04/2020 8:50 PM Workstation Name: [id number]
[2020-02-05 02:24] VITALS: BP 147/68
== END 2020-02-05 02:24 | disposition home or self-care (01) ==
LOC: ED 18:20
DX: F13.99 Sedative, hypnotic or anxiolytic use, unspecified with unspecified sedative, hypnotic or anxiolytic-induced disorder (principal); E11.22 Type 2 diabetes mellitus with diabetic chronic kidney disease; I12.0 Hypertensive chronic kidney disease with stage 5 chronic kidney disease or end stage renal disease; N18.6 End stage renal disease; K21.9 Gastro-esophageal reflux disease without esophagitis; R56.9 Unspecified convulsions; Z99.2 Dependence on renal dialysis; Z21 Asymptomatic human immunodeficiency virus [HIV] infection status; Z98.890 Other specified postprocedural states; Z79.899 Other long term (current) drug therapy; Z91.040 Latex allergy status
CPT/HCPCS: 36415; 70450; 80048; 80061; 80320; 82140; 82550; 82553; 82962; 84484; 85007; 85025; 93005; G0480